=== PATIENT | male | born 1995 | race Caucasian/White ===

== ENCOUNTER 2016-07-18 16:29 | Observation (INO) ==
--- NOTE | 2016-07-18 17:10 | Emergency Department Note ---
Disposition Clinical Impression: Suicidal ideation, Acute anxiety, Depression Disposition: Admitted As Inpatient Referrals: NO,PCP [Primary Care Provider] - Forms: ED Satisfaction Letter General Adult HPI - General Chief complaint: ED Psychiatric Symptoms Stated complaint: SI Time Seen by Provider: 07/18/16 17:09 Source: patient Limitations: no limitations - History of Present Illness HPI Narrative: 20-year-old male reports emergency department with his uncle. The patient has a history of autism, ADD, depression and anxiety. He patient has been off his medications for a few months and is now feeling suicidal. He has been anxious and depressed. His uncle has kept him from harming himself. There is no history of intentional OD or acute physical concern. No chest pain shortness of breath about pain vomiting or diarrhea. No trouble walking talking hearing seeing or speaking. No urinary issues or confusion. The patient feels well physically. He describes social conflict with his mother and her boyfriend. There is concern for progressive mental distress and suicidality. Pain Scale: 3 - Related Data Home Medications Medication Instructions Recorded Confirmed No Known Home Drugs 07/18/16 07/18/16 Allergies Allergy/AdvReac Type Severity Reaction Status Date / Time No Known Allergies Allergy Verified 07/18/16 16:32 All systems ED: reviewed and negative except as stated. Past Medical History - Past Medical History Medical history: Reports: other (ADD, autism, depression, anxiety, suicide attempt in the past per history) Psychiatric history: Reports: ADHD, prior suicide attempt - Social History Smoking Status: Never smoker Alcohol use: Reports: none Drug use: Reports: none Physical Exam - General Limitations: no limitations General appearance: alert, in no apparent distress - Head Head exam: atraumatic, normocephalic, normal inspection - Eye Eye exam: Present: normal appearance - ENT ENT exam: normal exam, normal oropharynx, mucous membranes moist, TM's normal bilaterally, normal external ear exam - Neck Neck exam: Present: normal inspection, full ROM, trachea midline. Absent: tenderness - Chest Chest inspection: Present: symmetric chest wall rise. Absent: tenderness - Respiratory Respiratory exam: Present: normal lung sounds bilaterally. Absent: respiratory distress, wheezes, accessory muscle use, prolonged expiratory phase - Cardiovascular Cardiovascular exam: Present: regular rate, normal rhythm, normal heart sounds - Abdominal Exam Abdominal exam: Present: soft, Non-Tender, normal bowel sounds. Absent: tenderness, distention, guarding, rebound, rigidity - Extremities Exam Extremities exam: Present: normal inspection, full ROM, normal capillary refill. Absent: tenderness, pedal edema, joint swelling, calf tenderness - Expanded Lower Extremity Exam Neurovascular/Tendon exam: Present: normal capillary refill. Absent: motor deficit, sensory deficit, tendon deficit, extremity cold to touch, pallor - Back Exam Back exam: Present: normal inspection, full ROM. Absent: tenderness, CVA tenderness (R), CVA tenderness (L), vertebral tenderness - Neurological Exam Neurological exam: Present: alert, oriented X3, CN II-XII intact. Absent: motor sensory deficit - Psychiatric Psychiatric exam: Present: normal affect, normal mood - Skin Skin exam: Present: warm, dry, intact, normal color. Absent: rash, cyanosis, diaphoresis, erythema, pallor, mottled Course Vital Signs Temperature 98.5 F 07/18/16 16:32 Pulse Rate 71 07/18/16 16:32 Respiratory Rate 18 07/18/16 16:32 Blood Pressure 122/69 07/18/16 16:32 O2 Sat by Pulse Oximetry 99 07/18/16 16:32 Temperature 98.5 F 07/18/16 16:32 Pulse Rate 71 07/18/16 16:32 Respiratory Rate 18 07/18/16 16:32 Blood Pressure 122/69 07/18/16 16:32 O2 Sat by Pulse Oximetry 99 07/18/16 16:32 Oxygen Delivery Oxygen Delivery Room Air Medical Decision Making - [facility] Narrative Medical decision making narrative: Patient appears to be stable from a medical standpoint. Laboratory testing unremarkable. His physical examination is unremarkable. The patient has been anxious and is reportedly suicidal. We have consult to the psychiatric service for further evaluation. Psychiatric services evaluated the patient and recommended admission and a pink slip. The patient family are agreeable. - Lab Data Lab results reviewed: Yes I reviewed the patient's lab results. Result diagrams: 07/18/16 17:17 07/18/16 17:17 Lab Results 07/18/16 07/18/16 07/18/16 Range/Units 17:17 17:17 17:22 WBC 8.0 (4.3-11.1) K/mcL RBC 5.02 (4.19-5.50) M/mcL Hgb 14.9 (12.9-16.9) g/dL Hct 43.9 (37.5-50.1) % MCV 87.5 (83.0-100.0) fL MCH 29.7 (28.0-33.3) pg MCHC 33.9 (31.6-35.5) g/dL RDW 12.0 (11.5-14.5) % Plt Count 268 (140-400) K/mcL MPV 10.6 (9.4-12.4) fL Immature Gran % 0.4 (0-4) % Seg Neutrophils % 65.5 % Lymphocytes % 22.1 % Monocytes % 8.1 % Eosinophils % 3.4 % Basophils % 0.5 % Neutrophils # 5.3 (1.6-8.9) K/mcL Lymphocytes # 1.8 (0.6-4.6) K/mcL Monocytes # 0.7 (0.0-1.3) K/mcL Eosinophils # 0.3 (0.0-0.6) K/mcL Basophils # 0.0 (0.0-0.2) K/mcL Sodium 141 (136-145) mEq/L Potassium 3.9 (3.5-4.5) mEq/L Chloride 106 (98-109) mEq/L Carbon Dioxide 28 (19-29) mEq/L BUN 10 (8-26) mg/dL Creatinine 1.04 (0.72-1.25) mg/dL Est GFR ( Amer) > 60 Est GFR (Non-Af Amer) > 60 BUN/Creatinine Ratio 10 (6-26) Glucose 102 H (70-99) mg/dL Calculated Osmolality 291 (280-300) Calcium 9.7 (8.6-10.8) mg/dL Urine Color Yellow (Yellow) Urine Clarity Clear (Clear) Urine pH 7.0 (5.0-8.0) pH Units Ur Specific [place] 1.024 (1.010-1.025) Urine Protein Negative (Neg-Trace) mg/dL Urine Glucose (UA) Normal (Normal) mg/dL Urine Ketones Negative (Negative) mg/dL Urine Blood Negative (Negative) Urine Nitrite Negative (Negative) Urine Bilirubin Negative (Negative) Urine Urobilinogen Normal (Normal) mg/dL Ur Leukocyte Esterase Negative (Negative) Salicylates < 5.0 L (15-30) mg/dL Urine Opiates Screen (Zzzdlf=224) ng/mL Acetaminophen < 1.0 L (10-30) mcg/mL Ur Barbiturates Screen (Uqlmla=177) ng/mL Ur Phencyclidine Scrn (Cutoff=25) ng/mL Ur Amphetamines Screen (Blcush=2968) ng/mL U Benzodiazepines Scrn (Tnonle=047) ng/mL Urine Cocaine Screen (Cutoff= 300) ng/mL U Marijuana (THC) Screen (Cutoff = 50) ng/mL Ethyl Alcohol < 10 (0-10) mg/dL 07/18/16 Range/Units 17:22 WBC (4.3-11.1) K/mcL RBC (4.19-5.50) M/mcL Hgb (12.9-16.9) g/dL Hct (37.5-50.1) % MCV (83.0-100.0) fL MCH (28.0-33.3) pg MCHC (31.6-35.5) g/dL RDW (11.5-14.5) % Plt Count (140-400) K/mcL MPV (9.4-12.4) fL Immature Gran % (0-4) % Seg Neutrophils % % Lymphocytes % % Monocytes % % Eosinophils % % Basophils % % Neutrophils # (1.6-8.9) K/mcL Lymphocytes # (0.6-4.6) K/mcL Monocytes # (0.0-1.3) K/mcL Eosinophils # (0.0-0.6) K/mcL Basophils # (0.0-0.2) K/mcL Sodium (136-145) mEq/L Potassium (3.5-4.5) mEq/L Chloride (98-109) mEq/L Carbon Dioxide (19-29) mEq/L BUN (8-26) mg/dL Creatinine (0.72-1.25) mg/dL Est GFR ( Amer) Est GFR (Non-Af Amer) BUN/Creatinine Ratio (6-26) Glucose (70-99) mg/dL Calculated Osmolality (280-300) Calcium (8.6-10.8) mg/dL Urine Color (Yellow) Urine Clarity (Clear) Urine pH (5.0-8.0) pH Units Ur Specific [place] (1.010-1.025) Urine Protein (Neg-Trace) mg/dL Urine Glucose (UA) (Normal) mg/dL Urine Ketones (Negative) mg/dL Urine Blood (Negative) Urine Nitrite (Negative) Urine Bilirubin (Negative) Urine Urobilinogen (Normal) mg/dL Ur Leukocyte Esterase (Negative) Salicylates (15-30) mg/dL Urine Opiates Screen Negative (Cdxsuh=011) ng/mL Acetaminophen (10-30) mcg/mL Ur Barbiturates Screen Negative (Llsbca=246) ng/mL Ur Phencyclidine Scrn Negative (Cutoff=25) ng/mL Ur Amphetamines Screen Negative (Anrewb=0329) ng/mL U Benzodiazepines Scrn Negative (Fnqtij=363) ng/mL Urine Cocaine Screen Negative (Cutoff= 300) ng/mL U Marijuana (THC) Screen Negative (Cutoff = 50) ng/mL Ethyl Alcohol (0-10) mg/dL
[2016-07-18 17:30] LABS: Bilirubin,Urine Negative (Negative); Blood,Urine Negative (Negative); Clarity,Urine Clear (Clear); Color,Urine Yellow (Yellow); Glucose,Urine (UA) Normal (Normal); Ketones,Urine Negative (Negative); Leukocyte Esterase,Urine Negative (Negative); Nitrite,Urine Negative (Negative); Protein,Urine Negative (Neg-Trace); Specific Gravity,Urine 1.024 (1.010-1.025); Urobilinogen,Urine Normal (Normal)
[2016-07-18 17:31] LABS: Basophils % 0.5 %; Eosinophils # 0.3 K/mcL (0.0-0.6); Eosinophils % 3.4 %; Hematocrit 43.9 % (37.5-50.1); Hemoglobin 14.9 g/dL (12.9-16.9); Immature Granulocytes % 0.4 % (0-4); Lymphocytes # 1.8 K/mcL (0.6-4.6); Lymphocytes % 22.1 %; Mean Corpuscular HGB Conc 33.9 g/dL (31.6-35.5); Mean Corpuscular Hemoglobin 29.7 pg (28.0-33.3); Mean Corpuscular Volume 87.5 fL (83.0-100.0); Mean Platelet Volume 10.6 fL (9.4-12.4); Monocytes # 0.7 K/mcL (0.0-1.3); Monocytes % 8.1 %; Neutrophils # 5.3 K/mcL (1.6-8.9); Platelet Count 268 K/mcL (140-400); Red Blood Count 5.02 M/mcL (4.19-5.50); Segmented Neutrophils % 65.5 %
[2016-07-18 17:35] LABS: Amphetamine Screen,Urine Negative ng/mL (Cutoff=1000); Barbiturate Screen,Urine Negative ng/mL (Cutoff=200); Benzodiazepines Screen,Urine Negative ng/mL (Cutoff=200); Cannabinoid Screen,Urine Negative ng/mL (Cutoff = 50); Cocaine Screen,Urine Negative ng/mL (Cutoff= 300); Opiate Screen,Urine Negative ng/mL (Cutoff=300); Phencyclidine Screen,Urine Negative ng/mL (Cutoff=25)
[2016-07-18 17:45] LABS: BUN/Creatinine Ratio 10 (6-26); Blood Urea Nitrogen 10 mg/dL (8-26); Calcium 9.7 mg/dL (8.6-10.8); Carbon Dioxide 28 mEq/L (19-29); Chloride 106 mEq/L (98-109); Glucose 102 mg/dL (70-99); Osmolality,Calculated 291 (280-300); Potassium 3.9 mEq/L (3.5-4.5); Sodium 141 mEq/L (136-145); eGFR For African Americans > 60; eGFR For Non-African Americans > 60
[2016-07-18 17:46] LABS: Acetaminophen < 1.0 mcg/mL (10-30); Ethanol < 10 mg/dL (0-10); Salicylate < 5.0 mg/dL (15-30)
[2016-07-18] MEDS ORDERED: Mag Hydrox/Al Hydrox/Simeth 30 ML UDC PO PRN (20:49)
[2016-07-18] MEDS ORDERED: hydrOXYzine pamoate 25 MG CAPSULE PO PRN (20:49)
[2016-07-18] MEDS ORDERED: *HR* LORazepam 1 MG TABLET PO PRN (20:49)
[2016-07-18] MEDS ORDERED: Haloperidol Lactate 5 MG/ML VIAL IM PRN (20:49)
[2016-07-18] MEDS ORDERED: Ibuprofen 400 MG TABLET PO PRN (20:49)
[2016-07-18] MEDS ORDERED: MOM Conc 10 ML UD.LIQ PO PRN (20:49)
[2016-07-18] MEDS ORDERED: *HR* LORazepam 2 MG/ML VIAL IM PRN (20:49)
[2016-07-18] MEDS: traZODone 50 MG TABLET PO PRN (23:51)
--- NOTE | 2016-07-19 15:13 | Discharge Summary ---
Date of Encounter: 07/20/16 Time of Encounter: 12:00 History of Present Illness Chief complaint: Suicidal ideation Admitted From: Emergency Dept History of Present Illness: Mr. Maddox is a 20 year old male admitted from the emergency department for suicidal ideation. Patient was having stress related to family and his relationship with his stepfather. Patient had a history of ADHD and autism. He has no recent psychiatric treatment history or medication. No previous history of suicide attempts or hospitalization. Patient reported he is homeless and was told by family that she needed to be placed in a group. Patient was pleasant and cooperative and did not endorse any symptoms of depression or anxiety except his interaction with his stepfather and argument with him. Past Med Surg Social Fam HX - Past Medical History Medical history: asthma, other - Past Psychiatric History Psychiatric history: Reports: no psych history - Social History Smoking Status: Never smoker Smokeless Tobacco Status: No Alcohol use: none Drug use: none Medications - Discharge Medications No Known Home Drugs 07/18/16 [History] Allergies No Known Allergies Allergy (Verified 07/18/16 16:32) Review of Systems Psychiatric: Reports: suicidal ideation Mental Status Exam - Mental Status Exam Patient orientation: Yes Person, Yes Time, Yes Place Level of alertness: Alert Patient appearance: Obese Behavior: calm, cooperative, anxious, impulsive Psychomotor activity: Increased Eye contact: Fleeting Contact Mood description: Euthymic/stable Affect description: congruent with mood, full range, euphoric Speech pattern: Normal rate, Normal rhythm, Normal tone, Excessive Speech Volume: Normal Thought process: Linear, Goal Oriented Thought Content: No Suicidal ideation, No Homicidal ideation, No Overt delusions Perceptual Disturbances: No Auditory hallucinations, No Visual hallucinations Judgment: Limited Insight: Partial Results - Vital Signs Vital signs: Temp Pulse Resp BP Pulse Ox 98 F 57 16 116/69 99 07/19/16 09:00 07/19/16 09:00 07/19/16 09:00 07/19/16 09:00 07/18/16 16:32 - Labs Labs: Laboratory Last Values WBC 8.0 K/mcL (4.3-11.1) 07/18/16 17:17 RBC 5.02 M/mcL (4.19-5.50) 07/18/16 17:17 Hgb 14.9 g/dL (12.9-16.9) 07/18/16 17:17 Hct 43.9 % (37.5-50.1) 07/18/16 17:17 MCV 87.5 fL (83.0-100.0) 07/18/16 17:17 MCH 29.7 pg (28.0-33.3) 07/18/16 17:17 MCHC 33.9 g/dL (31.6-35.5) 07/18/16 17:17 RDW 12.0 % (11.5-14.5) 07/18/16 17:17 Plt Count 268 K/mcL (140-400) 07/18/16 17:17 MPV 10.6 fL (9.4-12.4) 07/18/16 17:17 Immature Gran % 0.4 % (0-4) 07/18/16 17:17 Seg Neutrophils % 65.5 % 07/18/16 17:17 Lymphocytes % 22.1 % 07/18/16 17:17 Monocytes % 8.1 % 07/18/16 17:17 Eosinophils % 3.4 % 07/18/16 17:17 Basophils % 0.5 % 07/18/16 17:17 Neutrophils # 5.3 K/mcL (1.6-8.9) 07/18/16 17:17 Lymphocytes # 1.8 K/mcL (0.6-4.6) 07/18/16 17:17 Monocytes # 0.7 K/mcL (0.0-1.3) 07/18/16 17:17 Eosinophils # 0.3 K/mcL (0.0-0.6) 07/18/16 17:17 Basophils # 0.0 K/mcL (0.0-0.2) 07/18/16 17:17 Sodium 141 mEq/L (136-145) 07/18/16 17:17 Potassium 3.9 mEq/L (3.5-4.5) 07/18/16 17:17 Chloride 106 mEq/L (98-109) 07/18/16 17:17 Carbon Dioxide 28 mEq/L (19-29) 07/18/16 17:17 BUN 10 mg/dL (8-26) 07/18/16 17:17 Creatinine 1.04 mg/dL (0.72-1.25) 07/18/16 17:17 Est GFR ( Amer) > 60 07/18/16 17:17 Est GFR (Non-Af Amer) > 60 07/18/16 17:17 BUN/Creatinine Ratio 10 (6-26) 07/18/16 17:17 Glucose 102 mg/dL (70-99) H 07/18/16 17:17 Calculated Osmolality 291 (280-300) 07/18/16 17:17 Calcium 9.7 mg/dL (8.6-10.8) 07/18/16 17:17 Urine Color Yellow (Yellow) 07/18/16 17:22 Urine Clarity Clear (Clear) 07/18/16 17:22 Urine pH 7.0 pH Units (5.0-8.0) 07/18/16 17:22 Ur Specific [place] 1.024 (1.010-1.025) 07/18/16 17:22 Urine Protein Negative mg/dL (Neg-Trace) 07/18/16 17:22 Urine Glucose (UA) Normal mg/dL (Normal) 07/18/16 17:22 Urine Ketones Negative mg/dL (Negative) 07/18/16 17:22 Urine Blood Negative (Negative) 07/18/16 17:22 Urine Nitrite Negative (Negative) 07/18/16 17:22 Urine Bilirubin Negative (Negative) 07/18/16 17:22 Urine Urobilinogen Normal mg/dL (Normal) 07/18/16 17:22 Ur Leukocyte Esterase Negative (Negative) 07/18/16 17:22 Salicylates < 5.0 mg/dL (15-30) L 07/18/16 17:17 Urine Opiates Screen Negative ng/mL (Ewhhiz=428) 07/18/16 17:22 Acetaminophen < 1.0 mcg/mL (10-30) L 07/18/16 17:17 Ur Barbiturates Screen Negative ng/mL (Yqzuvy=529) 07/18/16 17:22 Ur Phencyclidine Scrn Negative ng/mL (Cutoff=25) 07/18/16 17:22 Ur Amphetamines Screen Negative ng/mL (Fbkoaq=1595) 07/18/16 17:22 U Benzodiazepines Scrn Negative ng/mL (Rkvdrn=166) 07/18/16 17:22 Urine Cocaine Screen Negative ng/mL (Cutoff= 300) 07/18/16 17:22 U Marijuana (THC) Screen Negative ng/mL (Cutoff = 50) 07/18/16 17:22 Ethyl Alcohol < 10 mg/dL (0-10) 07/18/16 17:17 Diagnosis - Discharge Diagnosis (1) Suicidal ideation Status: Acute Assessment and Plan - Patient/Caregiver Discharge Instructions Activity: resume usual activities as tolerated Diet: regular diet - Follow up Plan Follow up with: Jenny Brenda Hsieh [facility] [place] - 07/25/16 8:45 am (The above appointment is too establish you as a client. When you come to your first appointment, you will have an orientation to the agency and you will meet with a counselor. Please bring the following with you to your first visit to the clinic: 1) proof of household income (two consecutive pay stubs, social security award letter, bank statement, statement letter from [facility], child support statement, IRS 1040 or W2 form, or a statement from the person who financially supports you stating they help provide for your basic needs), 2) proof of residency (drivers license, a piece of mail showing your address, a statement from person you live with verifying you live at their address), 3) your social security card, 4) photo ID, 5) your insurance card (if you have commercial insurance you must call to obtain a prior authorization number before you arrive to your first appointment) and 6) if you do not have insurance but have applied for Medicaid, please bring verification you have applied. This is the first available appointment. You may contact the office regularly to check for cancellations that may allow you to be seen sooner. ) [facility] [Outside] - 07/31/16 9:00 am (The above appointment is with Phyllis Clark to establish with a primary care provider. You are also scheduled to see psychiatric prescriber, Marni Rea, on 10/10 at 9:30am. Please arrive 15 minutes early to your first appointment to complete paperwork. Please bring your insurance card, photo ID and medications in their original bottles. If you do not have insurance, bring proof of income to apply for the sliding fee scale. If you are unable to keep this appointment , 24 hour business notice of cancellation is expected. This is the first available appointment. You may contact the office regularly to check for cancellations that may allow you to be seen sooner. ) Functional capacity at discharge: independent ambulation Overall status at discharge: Stable Disposition: Home, Self-Care Provider Date of admission: 07/18/16 19:28 Primary care physician: PCP NO Consults: 07/18/16 23:05 Consult to Pastoral Services [CONS] Routine Comment: Discharging clinician: Jamie Patel Hospital Course Hospital course: Mr. Maddox is a 20 year old male admitted for evaluation of suicidal ideation after having a family conflicts with his stepfather. On the unit the patient was cooperative medically stable pleasant. He denied any problem with sleep or appetite and he did not endorse any symptoms depression and anxiety and he did not meet criteria for continued inpatient psychiatric hospitalization. psychiatric social worker provided discharge plans and referral to resources in the community that patient can use. On discharge patient was medically stable, denies suicidal ideation and future oriented. - Time Spent with Patient Total time spent providing and/or coordinating discharge services: Less than 30 minutes Procedures - Procedures Procedures: Medication Management, Crisis Stabilization, Supportive Therapy, Group Therapy, Psychoeducational Therapy Quality - Multiple Antipsychotics Patient discharged on 2 or more antipsychotic medications: No
[2016-07-19] MEDS: traZODone 50 MG TABLET PO PRN (21:48)
[2016-07-20 09:39] VITALS: BP 123/58
== END 2016-07-20 15:15 | disposition home or self-care (01) ==
LOC: EMEROO 16:29 → 1ANU 19:28 → INTOOBSV 19:28 → 1ANU 20:12
PROVIDERS: ADMIT Psychiatry & Neurology Psychiatry; ATTEND Psychiatry & Neurology Psychiatry

== ENCOUNTER 2017-01-04 02:13 | Observation (INO) ==
[2017-01-04 03:11] LABS: Bilirubin,Urine Negative (Negative); Blood,Urine Negative (Negative); Clarity,Urine Clear (Clear); Color,Urine Yellow (Yellow); Glucose,Urine (UA) Normal (Normal); Ketones,Urine Negative (Negative); Leukocyte Esterase,Urine Negative (Negative); Nitrite,Urine Negative (Negative); PH,Urine 6.5 pH Units (5.0-8.0); Protein,Urine Negative (Neg-Trace); Specific Gravity,Urine 1.024 (1.010-1.025); Urobilinogen,Urine Normal (Normal)
--- NOTE | 2017-01-04 03:12 | Emergency Department Note ---
Disposition Clinical Impression: Auditory hallucinations, Acute anxiety Disposition: Admitted As Inpatient Condition: Good General Adult HPI - General Chief complaint: ED Psychiatric Symptoms Stated complaint: "mental breakdown" Time Seen by Provider: 01/04/17 02:26 Source: patient, EMS Limitations: no limitations Nursing Notes Reviewed: Yes Vital Signs Reviewed: Yes - History of Present Illness HPI Narrative: 21-year-old male who reports he has had hallucinations and "mental breakdown" today. He says he has had a history of suicidal ideation but has never actually attempted. He is not currently suicidal. He states that he hears voices that are telling him to do things. He states that he is having increased stress in his life as we approach the dates of the anniversary of a family member's . He denies any other symptoms. He is not having any abdominal pain or fever. He denies trying to overdose on any medications or attempting on his life. He is requesting to be admitted to [facility] because he "cannot handle it ". He does have a history of Asperger syndrome. Pain Scale: 0 Improves with: nothing Worsens with: nothing Associated symptoms: Reports: denies other symptoms Treatments Prior to Arrival: none - Related Data Home Medications Medication Instructions Recorded Confirmed Intuniv 4 mg PO DAILY 09/05/16 09/05/16 Lisdexamfetamine Dimesylate 70 mg PO DAILY 09/05/16 09/05/16 [Vyvanse] Quetiapine Fumarate [Seroquel Xr] 200 mg PO DAILY 09/05/16 09/05/16 Sertraline [Zoloft] 50 mg PO DAILY 09/05/16 09/05/16 Previous Rx's Medication Instructions Recorded Sertraline [Zoloft] 100 mg PO DAILY #7 tablet 09/12/16 Sertraline [Zoloft] 50 mg PO DAILY #30 tablet 10/01/16 Azithromycin [Azithromycin 6-Tab 250 mg PO PER PKG DI #6 tab 10/19/16 Pack] Naproxen [Naprosyn] 500 mg PO BID PRN #20 tablet 12/10/16 Allergies Allergy/AdvReac Type Severity Reaction Status Date / Time No Known Allergies Allergy Verified 12/10/16 01:11 All systems ED: reviewed and negative except as stated. Constitutional: Denies: fever ENT ED: Denies: throat pain Cardiovascular: Denies: chest pain Respiratory: Denies: cough Gastrointestinal: Denies: abdominal pain Musculoskeletal: Denies: back pain Integumentary: Denies: rash Neurological: Denies: headache Psychiatric: Reports: anxiety, auditory hallucinations Past Medical History - Past Medical History Medical history: Reports: asthma, other Psychiatric history: Reports: anxiety, ADHD, depression - Social History Smoking Status: Current every day smoker Smokeless Tobacco Status: No Alcohol use: Reports: none Drug use: Reports: marijuana Physical Exam - General Limitations: no limitations General appearance: alert - Head Head exam: atraumatic - Eye Eye exam: Present: normal appearance, PERRL - ENT ENT exam: normal exam - Neck Neck exam: Present: normal inspection - Chest Chest inspection: Present: normal inspection - Respiratory Respiratory exam: Present: normal lung sounds bilaterally. Absent: respiratory distress - Cardiovascular Cardiovascular exam: Present: regular rate, normal rhythm - Abdominal Exam Abdominal exam: Present: soft, Non-Tender - Extremities Exam Extremities exam: Present: normal inspection - Neurological Exam Neurological exam: Present: alert, oriented X3. Absent: motor sensory deficit - Skin Skin exam: Present: warm, dry Course Course Narrative: He is having auditory hallucinations. 1A has evaluated the patient and recommended admission. Vital Signs Temperature 98.0 F 01/04/17 02:14 Pulse Rate 73 01/04/17 02:14 Respiratory Rate 20 01/04/17 02:14 Blood Pressure 147/85 01/04/17 02:14 O2 Sat by Pulse Oximetry 100 01/04/17 02:14 Temperature 98.1 F 01/04/17 05:33 Pulse Rate 76 01/04/17 04:53 Respiratory Rate 18 01/04/17 05:33 Blood Pressure 144/82 01/04/17 05:33 O2 Sat by Pulse Oximetry 99 01/04/17 04:53 Oxygen Delivery Oxygen Delivery Room Air Medical Decision Making - Medical Records Medical records reviewed: Yes I reviewed the patient's medical records. - Lab Data Lab results reviewed: Yes I reviewed the patient's lab results. Result diagrams: 01/04/17 03:32 01/04/17 03:32 Lab Results 01/04/17 01/04/17 01/04/17 Range/Units 03:00 03:03 03:32 WBC 10.4 (4.3-11.1) K/mcL RBC 4.74 (4.19-5.50) M/mcL Hgb 14.2 (12.9-16.9) g/dL Hct 42.1 (37.5-50.1) % MCV 88.8 (83.0-100.0) fL MCH 30.0 (28.0-33.3) pg MCHC 33.7 (31.6-35.5) g/dL RDW 12.4 (11.5-14.5) % Plt Count 266 (140-400) K/mcL MPV 10.6 (9.4-12.4) fL Immature Gran % 0.7 (0-4) % Seg Neutrophils % 60.9 % Lymphocytes % 23.9 % Monocytes % 10.2 % Eosinophils % 3.9 % Basophils % 0.4 % Neutrophils # 6.4 (1.6-8.9) K/mcL Lymphocytes # 2.5 (0.6-4.6) K/mcL Monocytes # 1.1 (0.0-1.3) K/mcL Eosinophils # 0.4 (0.0-0.6) K/mcL Basophils # 0.0 (0.0-0.2) K/mcL Immature Plt Fraction 4.4 (1.1-6.1) % Sodium (136-145) mEq/L Potassium (3.5-4.5) mEq/L Chloride (98-109) mEq/L Carbon Dioxide (19-29) mEq/L BUN (8-26) mg/dL Creatinine (0.72-1.25) mg/dL Est GFR ( Amer) (> 60) Est GFR (Non-Af Amer) (> 60) BUN/Creatinine Ratio (6-26) Glucose (70-99) mg/dL Calculated Osmolality (280-300) Calcium (8.6-10.8) mg/dL Urine Color Yellow (Yellow) Urine Clarity Clear (Clear) Urine pH 6.5 (5.0-8.0) pH Units Ur Specific [place] 1.024 (1.010-1.025) Urine Protein Negative (Neg-Trace) mg/dL Urine Glucose (UA) Normal (Normal) mg/dL Urine Ketones Negative (Negative) mg/dL Urine Blood Negative (Negative) Urine Nitrite Negative (Negative) Urine Bilirubin Negative (Negative) Urine Urobilinogen Normal (Normal) mg/dL Ur Leukocyte Esterase Negative (Negative) Salicylates (15-30) mg/dL Urine Opiates Screen Negative (Abrgrs=163) ng/mL Acetaminophen (10-30) mcg/mL Ur Barbiturates Screen Negative (Udpcwl=024) ng/mL Ur Phencyclidine Scrn Negative (Cutoff=25) ng/mL Ur Amphetamines Screen Negative (Rofngk=6743) ng/mL U Benzodiazepines Scrn Negative (Kuiacw=675) ng/mL Urine Cocaine Screen Negative (Cutoff= 300) ng/mL U Marijuana (THC) Screen Negative (Cutoff = 50) ng/mL Ethyl Alcohol (0-10) mg/dL 01/04/17 Range/Units 03:32 WBC (4.3-11.1) K/mcL RBC (4.19-5.50) M/mcL Hgb (12.9-16.9) g/dL Hct (37.5-50.1) % MCV (83.0-100.0) fL MCH (28.0-33.3) pg MCHC (31.6-35.5) g/dL RDW (11.5-14.5) % Plt Count (140-400) K/mcL MPV (9.4-12.4) fL Immature Gran % (0-4) % Seg Neutrophils % % Lymphocytes % % Monocytes % % Eosinophils % % Basophils % % Neutrophils # (1.6-8.9) K/mcL Lymphocytes # (0.6-4.6) K/mcL Monocytes # (0.0-1.3) K/mcL Eosinophils # (0.0-0.6) K/mcL Basophils # (0.0-0.2) K/mcL Immature Plt Fraction (1.1-6.1) % Sodium 143 (136-145) mEq/L Potassium 3.8 (3.5-4.5) mEq/L Chloride 109 (98-109) mEq/L Carbon Dioxide 24 (19-29) mEq/L BUN 10 (8-26) mg/dL Creatinine 0.85 (0.72-1.25) mg/dL Est GFR ( Amer) > 60 (> 60) Est GFR (Non-Af Amer) > 60 (> 60) BUN/Creatinine Ratio 12 (6-26) Glucose 113 H (70-99) mg/dL Calculated Osmolality 296 (280-300) Calcium 9.1 (8.6-10.8) mg/dL Urine Color (Yellow) Urine Clarity (Clear) Urine pH (5.0-8.0) pH Units Ur Specific [place] (1.010-1.025) Urine Protein (Neg-Trace) mg/dL Urine Glucose (UA) (Normal) mg/dL Urine Ketones (Negative) mg/dL Urine Blood (Negative) Urine Nitrite (Negative) Urine Bilirubin (Negative) Urine Urobilinogen (Normal) mg/dL Ur Leukocyte Esterase (Negative) Salicylates < 5.0 L (15-30) mg/dL Urine Opiates Screen (Ykmtoi=387) ng/mL Acetaminophen < 1.0 L (10-30) mcg/mL Ur Barbiturates Screen (Pztztj=634) ng/mL Ur Phencyclidine Scrn (Cutoff=25) ng/mL Ur Amphetamines Screen (Bjkdqr=6122) ng/mL U Benzodiazepines Scrn (Zqxyps=990) ng/mL Urine Cocaine Screen (Cutoff= 300) ng/mL U Marijuana (THC) Screen (Cutoff = 50) ng/mL Ethyl Alcohol < 10 (0-10) mg/dL Attestation Statement - Attestation Attestation: I, Nishant Richards MD, personally evaluated this patient and discussed their management with the resident physician. I reviewed the resident's note and agree with the documented findings, medical decision making, and plan of care. 21-year-old male presents to the emergency department complaining of anxiety and insomnia and auditory hallucinations. He states that he has been hearing demonic voices. No visual hallucinations. He denies any suicidal or homicidal ideation. On examination patient is a well-developed well-nourished well-appearing young male in no acute distress. He is alert and oriented 3. There is no cyanosis or diaphoresis. Breath sounds are clear and equal bilaterally. Heart regular rate and rhythm. Abdomen is soft and nontender with normal bowel sounds. No gross focal neurological deficits. Labs reviewed. [facility] psychiatry service consulted and evaluated patient in the emergency department and patient is being admitted to the psychiatry service.
[2017-01-04 03:19] LABS: Amphetamine Screen,Urine Negative ng/mL (Cutoff=1000); Barbiturate Screen,Urine Negative ng/mL (Cutoff=200); Benzodiazepines Screen,Urine Negative ng/mL (Cutoff=200); Cannabinoid Screen,Urine Negative ng/mL (Cutoff = 50); Cocaine Screen,Urine Negative ng/mL (Cutoff= 300); Opiate Screen,Urine Negative ng/mL (Cutoff=300); Phencyclidine Screen,Urine Negative ng/mL (Cutoff=25)
[2017-01-04 03:47] LABS: Basophils % 0.4 %; Eosinophils # 0.4 K/mcL (0.0-0.6); Eosinophils % 3.9 %; Hematocrit 42.1 % (37.5-50.1); Hemoglobin 14.2 g/dL (12.9-16.9); Immature Granulocytes % 0.7 % (0-4); Immature Platelets 4.4 % (1.1-6.1); Lymphocytes # 2.5 K/mcL (0.6-4.6); Lymphocytes % 23.9 %; Mean Corpuscular HGB Conc 33.7 g/dL (31.6-35.5); Mean Corpuscular Volume 88.8 fL (83.0-100.0); Mean Platelet Volume 10.6 fL (9.4-12.4); Monocytes # 1.1 K/mcL (0.0-1.3); Monocytes % 10.2 %; Neutrophils # 6.4 K/mcL (1.6-8.9); Platelet Count 266 K/mcL (140-400); Red Blood Count 4.74 M/mcL (4.19-5.50); Red Cell Distribution Width 12.4 % (11.5-14.5); Segmented Neutrophils % 60.9 %
[2017-01-04 04:02] LABS: BUN/Creatinine Ratio 12 (6-26); Blood Urea Nitrogen 10 mg/dL (8-26); Calcium 9.1 mg/dL (8.6-10.8); Carbon Dioxide 24 mEq/L (19-29); Chloride 109 mEq/L (98-109); Glucose 113 mg/dL (70-99); Osmolality,Calculated 296 (280-300); Potassium 3.8 mEq/L (3.5-4.5); Sodium 143 mEq/L (136-145); eGFR For African Americans > 60 (> 60); eGFR For Non-African Americans > 60 (> 60)
[2017-01-04 04:06] LABS: Acetaminophen < 1.0 mcg/mL (10-30); Ethanol < 10 mg/dL (0-10); Salicylate < 5.0 mg/dL (15-30)
[2017-01-04] MEDS ORDERED: MOM Conc 10 ML UD.LIQ PO PRN (05:27)
[2017-01-04] MEDS ORDERED: *HR* LORazepam 2 MG/ML VIAL IM PRN (05:27)
[2017-01-04] MEDS ORDERED: Mag Hydrox/Al Hydrox/Simeth 30 ML UDC PO PRN (05:27)
[2017-01-04] MEDS ORDERED: hydrOXYzine pamoate 25 MG CAPSULE PO PRN (05:27)
[2017-01-04] MEDS ORDERED: Haloperidol Lactate 5 MG/ML VIAL IM PRN (05:27)
[2017-01-04] MEDS ORDERED: *HR* LORazepam 1 MG TABLET PO PRN (05:27)
[2017-01-04] MEDS ORDERED: traZODone 50 MG TABLET PO PRN (05:27)
--- NOTE | 2017-01-04 15:15 | Psychiatry History & Physical ---
Date of Encounter: 01/04/17 Time of Encounter: 15:09 History of Present Illness Patient Stated Chief Complaint: AH Medicare Admission Attestation: For traditional Medicare patients the provided hospital inpatient services are reasonable and necessary and in the case of services not specified as inpatient -only under 42 CFR 419.22 (n), that they are appropriately provided as inpatient services in accordance 42 CFR 412.3. For Critical Access Hospital the patient may reasonably be expected to be discharged or transferred to a hospital within 96 hours after admission to the Critical Access Hospital. Admitted From: Home Plans for Post Hospital Care: Home History of Present Illness: Mr. Madodx is a 21 year old male who was admitted secondary to hearing AH and feeling very frightened. According to staff he is a frequent customer in the [place] [facility]. Typically he presents with SI but client denies having any SI for six months now. Client reports AH are new and distressing. Does not appear psychotic. No responding to IS. Appears to have cognitive limitations. Likely DD but not linked with services. Rather child-like. Client reported the last time he was here he was placed on Zoloft and this medication helped him. Discussed how Zoloft can help with mood and anxiety but that it was not typically used for AH. Client requested to start with Zoloft alone and this health underwriter agrees since he benefitted from it before and it is doubtful he is experiencing genuine psychosis. Lives with friends and states he can return there once discharged. No substances of abuse. Denies physical health problems. Will need linked with services as his community compliance is poor and he no longer has an open case anywhere. Past Med Surg Social Fam HX - Past Medical History Medical history: asthma, other - Past Psychiatric History Psychiatric history: Reports: previous psychiatric hospitalization Family psychiatric history: Unknown Family History of Suicide: Unknown - Social History Smoking Status: Former smoker Smokeless Tobacco Status: No Alcohol use: none Drug use: none - Family History Mother Grandmother History Unknown: Yes Adopted: Yes Name: Karyn Burns Age: 61 Family Member Ethnicity: Non- Living Status: Still Living Hx Family Cardiac Disorders: Yes (TIA) Hx Family Respiratory Disorders: No Hx Family Cancer: Yes (Leukemia) Hx Family GI Disorders: No Hx Family Genitourinary Disorders: No Hx Family Endocrine Disorder: Yes (Diabetic) Hx Family Musculoskeletal Disorders: No Hx Family Neuromuscular Disorders: No Hx Family Neurologic Disorders: No Hx Family HEENT Disorders: No Hx Family Autoimmune Disorders: No Hx Family Reproductive Disorders: No Hx Family Psychosocial Disorders: No Hx Family Medical Disorders: No Medications & Allergies No Known Home Drugs 01/04/17 [History] 3 Allergy/AdvReac Type Severity Reaction Status Date / Time No Known Allergies Allergy Verified 12/10/16 01:11 Review of Systems Constitutional: Denies: fever, chills, weakness, weight change Eyes: Denies: eye pain, vision change Ears, Nose, Throat: Denies: ear pain, throat pain, dental pain, hearing loss, congestion Cardiovascular: Denies: chest pain, palpitations, dyspnea on exertion Respiratory: Denies: cough, dyspnea, wheezes Gastrointestinal: Denies: abdominal pain, nausea, vomiting, diarrhea, constipation Genitourinary male: Denies: urgency, dysuria, frequency, genital lesions Genitourinary female: Denies: urgency, dysuria, frequency, abnormal menses, dyspareunia Musculoskeletal: Denies: joint swelling, joint pain Integumentary: Denies: rash, lesions, pruritus Neurological: Denies: headache, weakness, numbness, memory loss Endocrine: Denies: fatigue, heat or cold intolerance Hematologic/Lymphatic: Denies: easy bruising, lymphadenopathy Allergic/Immunologic: Denies: urticaria, itchy eyes Mental Status Exam Patient orientation: Yes Person, Yes Time, Yes Place Level of alertness: Alert Patient appearance: Appropriate Behavior: calm, cooperative Psychomotor activity: Normal Eye contact: Maintains Eye Contact Mood description: Anxious Affect description: congruent with mood Speech pattern: Normal rate, Normal rhythm, Normal tone Speech volume: Loud Thought process: Goal Oriented Thought content: No Suicidal ideation, No Homicidal ideation, No Overt delusions Perceptual disturbances: Yes Auditory hallucinations Attention span: Capable of Focused Attention Memory description: Grossly Intact Patient reliability: Questionable Historian Intelligence estimate: Below Average Judgment: Limited Insight: Partial Exam - HEENT Head exam IM: Present: atraumatic Eye exam IM: Present: EOMI - Neurological Neurological exam IM: Present: alert - Respiratory Respiratory exam IM: Present: CTAB - GI/Abdominal GI/Abdominal exam IM: Present: normal bowel sounds - Extremities Extremities exam IM: Present: full ROM - Skin Skin exam IM: Present: normal color Results - Vital Signs Vital signs: Temp Pulse Resp BP Pulse Ox 97.6 F 55 18 126/68 99 01/04/17 09:00 01/04/17 09:00 01/04/17 09:00 01/04/17 09:00 01/04/17 04:53 - Labs Labs: Laboratory Last Values WBC 10.4 K/mcL (4.3-11.1) 01/04/17 03:32 RBC 4.74 M/mcL (4.19-5.50) 01/04/17 03:32 Hgb 14.2 g/dL (12.9-16.9) 01/04/17 03:32 Hct 42.1 % (37.5-50.1) 01/04/17 03:32 MCV 88.8 fL (83.0-100.0) 01/04/17 03:32 MCH 30.0 pg (28.0-33.3) 01/04/17 03:32 MCHC 33.7 g/dL (31.6-35.5) 01/04/17 03:32 RDW 12.4 % (11.5-14.5) 01/04/17 03:32 Plt Count 266 K/mcL (140-400) 01/04/17 03:32 MPV 10.6 fL (9.4-12.4) 01/04/17 03:32 Immature Gran % 0.7 % (0-4) 01/04/17 03:32 Seg Neutrophils % 60.9 % 01/04/17 03:32 Lymphocytes % 23.9 % 01/04/17 03:32 Monocytes % 10.2 % 01/04/17 03:32 Eosinophils % 3.9 % 01/04/17 03:32 Basophils % 0.4 % 01/04/17 03:32 Neutrophils # 6.4 K/mcL (1.6-8.9) 01/04/17 03:32 Lymphocytes # 2.5 K/mcL (0.6-4.6) 01/04/17 03:32 Monocytes # 1.1 K/mcL (0.0-1.3) 01/04/17 03:32 Eosinophils # 0.4 K/mcL (0.0-0.6) 01/04/17 03:32 Basophils # 0.0 K/mcL (0.0-0.2) 01/04/17 03:32 Immature Plt Fraction 4.4 % (1.1-6.1) 01/04/17 03:32 Sodium 143 mEq/L (136-145) 01/04/17 03:32 Potassium 3.8 mEq/L (3.5-4.5) 01/04/17 03:32 Chloride 109 mEq/L (98-109) 01/04/17 03:32 Carbon Dioxide 24 mEq/L (19-29) 01/04/17 03:32 BUN 10 mg/dL (8-26) 01/04/17 03:32 Creatinine 0.85 mg/dL (0.72-1.25) 01/04/17 03:32 Est GFR ( Amer) > 60 (> 60) 01/04/17 03:32 Est GFR (Non-Af Amer) > 60 (> 60) 01/04/17 03:32 BUN/Creatinine Ratio 12 (6-26) 01/04/17 03:32 Glucose 113 mg/dL (70-99) H 01/04/17 03:32 Calculated Osmolality 296 (280-300) 01/04/17 03:32 Calcium 9.1 mg/dL (8.6-10.8) 01/04/17 03:32 Urine Color Yellow (Yellow) 01/04/17 03:03 Urine Clarity Clear (Clear) 01/04/17 03:03 Urine pH 6.5 pH Units (5.0-8.0) 01/04/17 03:03 Ur Specific [place] 1.024 (1.010-1.025) 01/04/17 03:03 Urine Protein Negative mg/dL (Neg-Trace) 01/04/17 03:03 Urine Glucose (UA) Normal mg/dL (Normal) 01/04/17 03:03 Urine Ketones Negative mg/dL (Negative) 01/04/17 03:03 Urine Blood Negative (Negative) 01/04/17 03:03 Urine Nitrite Negative (Negative) 01/04/17 03:03 Urine Bilirubin Negative (Negative) 01/04/17 03:03 Urine Urobilinogen Normal mg/dL (Normal) 01/04/17 03:03 Ur Leukocyte Esterase Negative (Negative) 01/04/17 03:03 Salicylates < 5.0 mg/dL (15-30) L 01/04/17 03:32 Urine Opiates Screen Negative ng/mL (Krkugm=179) 01/04/17 03:00 Acetaminophen < 1.0 mcg/mL (10-30) L 01/04/17 03:32 Ur Barbiturates Screen Negative ng/mL (Wqsepf=295) 01/04/17 03:00 Ur Phencyclidine Scrn Negative ng/mL (Cutoff=25) 01/04/17 03:00 Ur Amphetamines Screen Negative ng/mL (Hazsxo=0205) 01/04/17 03:00 U Benzodiazepines Scrn Negative ng/mL (Kkoctm=102) 01/04/17 03:00 Urine Cocaine Screen Negative ng/mL (Cutoff= 300) 01/04/17 03:00 U Marijuana (THC) Screen Negative ng/mL (Cutoff = 50) 01/04/17 03:00 Ethyl Alcohol < 10 mg/dL (0-10) 01/04/17 03:32 Assessment and Plan (1) Acute anxiety Current visit: Yes Status: Acute Plan: Admit inpatient for safety and stabilization, Close observation, Suicide Precautions per unit protocol, Encourage participation in unit milieu, Group Therapy, Monitor sleep, Monitor appetite Risks, benefits, side effects, alternatives discussed w/pt: Yes Patient agreeable to treatment: Yes Plans for Post Hospital Care: Home Estimated Length of Stay (Days): 3
[2017-01-04] MEDS: Acetaminophen 325 MG TABLET PO PRN ×2 (15:41→20:28)
[2017-01-05 09:29] VITALS: BP 128/68
--- NOTE | 2017-01-05 10:18 | Discharge Summary ---
Date of Encounter: 01/05/17 Time of Encounter: 10:13 Diagnosis - Discharge Diagnosis (1) Acute anxiety Status: Acute Medications - Discharge Medications Prescriptions: hydrOXYzine pamoate [HydrOXYzine Pamoate] 25 mg PO TID PRN #70 capsule PRN Reason: Anxiety Sertraline [Zoloft] 50 mg PO HS #35 tablet Sertraline [Zoloft] 50 mg PO HS #35 tablet 01/05/17 [Rx] hydrOXYzine pamoate [HydrOXYzine Pamoate] 25 mg PO TID PRN #70 capsule 01/05/17 [Rx] 3 Allergy/AdvReac Type Severity Reaction Status Date / Time No Known Allergies Allergy Verified 12/10/16 01:11 Provider Date of admission: 01/04/17 05:25 Primary care physician: PCP NONE Discharging clinician: Francine Spear Assessment and Plan - Patient/Caregiver Discharge Instructions Activity: resume usual activities as tolerated Diet: regular diet - Follow up Plan Follow up with: [facility] [Outside] (The above appointment is with Dulce Pugh, for outpatient psychiatric assessment and medication management services. Please arrive 30 minutes early to complete paperwork. Please bring your photo ID (bring proof of address if you do not have an ID) and medication list. The above appointment(s) reflects first availability. You may contact the office regularly to check for cancellations that may allow you to be seen sooner. Additionally, the new catalytic case operator assigned to you will contact you directly to schedule your intake appointment for case management and mental health counseling services. ) Functional capacity at discharge: independent ambulation Overall status at discharge: Stable Disposition: Home, Self-Care Hospital Course Hospital course: Mr. Maddox is a 21 year old male who was admitted secondary to . Client asked to be restarted on his Zoloft. Per client he took the Zoloft this morning and within minutes the voices were much better. Discussed how Zoloft is good for mood and anxiety but not psychosis. However, client never appeared psychotic. No responding to IS. Very happy on the unit. Told staff his main goal was to make friends. Asked to stay in the hospital through Sunday so that he could watch the theAudience race on TV. However, he was agreeable to discharge when it was discussed that he did not meet inpatient criteria. Denied SI throughout his admission. No HI or aggressive behaviors. - Time Spent with Patient Total time spent providing and/or coordinating discharge services: Quality - Multiple Antipsychotics Patient discharged on 2 or more antipsychotic medications: No Procedures - Procedures Procedures: Medication Management, Crisis Stabilization, Supportive Therapy, Group Therapy Mental Status Exam - Mental Status Exam Patient orientation: Yes Person, Yes Time, Yes Place Level of alertness: Alert Patient appearance: Appropriate Behavior: calm, cooperative Psychomotor activity: Normal Eye contact: Maintains Eye Contact Mood description: Euthymic/stable Affect description: congruent with mood, full range Speech pattern: Normal rate, Normal rhythm, Normal tone Speech Volume: Loud Thought process: Goal Oriented Thought Content: No Suicidal ideation, No Homicidal ideation, No Overt delusions Perceptual Disturbances: No Reacting to internal stimuli, Yes Auditory hallucinations, No Visual hallucinations Judgment: Limited Insight: Partial
== END 2017-01-05 11:20 | disposition home or self-care (01) ==
LOC: EMEROO 02:13 → 1ANU 02:13
PROVIDERS: ADMIT Psychiatry & Neurology Psychiatry; ATTEND Psychiatry & Neurology Psychiatry

== ENCOUNTER 2018-08-14 12:44 | Inpatient (IN) ==
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
[2018-08-14] MEDS ORDERED: Nicotine 21 MG PATCH.TD24 TD SCH (13:30)
--- NOTE | 2018-08-14 17:32 | Emergency Department Note ---
Disposition Clinical Impression: Suicidal ideation Disposition: Admitted As Inpatient Condition: Fair Time of Disposition: 17:20 Psych HPI - General Chief Complaint: ED Medical Clearance Stated Complaint: SI Time Seen by Provider: 08/14/18 12:48 Source: patient, EMS Mode of arrival: ambulatory Limitations: no limitations Nursing Notes Reviewed: Yes Vital Signs Reviewed: Yes - Related Data Home Medications Medication Instructions Recorded Confirmed Sertraline [Zoloft] 50 mg PO DAILY 12/25/17 08/14/18 Trazodone HCl 100 mg PO HS 08/14/18 08/14/18 Allergies Allergy/AdvReac Type Severity Reaction Status Date / Time No Known Allergies Allergy Verified 12/25/17 14:00 Past Medical History - Past Medical History Medical history: Reports: no medical history, hypertension Surgical history: Reports: non-contributory Psychiatric history: Reports: anxiety, ADHD, bipolar, depression, prior suicide attempt, previous psychiatric hospitalization, other - Social History Smoking Status: Current every day smoker Smokeless Tobacco Status: No Alcohol use: Reports: occasionally Drug use: Reports: marijuana Physical Exam - General Limitations: no limitations General appearance: alert, in no apparent distress Course Vital Signs Temperature 98.0 F 08/14/18 12:46 Pulse Rate 74 08/14/18 12:46 Respiratory Rate 18 08/14/18 12:46 Blood Pressure 123/75 08/14/18 12:46 O2 Sat by Pulse Oximetry 97 08/14/18 12:46 Temperature 97.6 F 08/14/18 20:04 Pulse Rate 84 08/14/18 20:04 Respiratory Rate 20 08/14/18 20:04 Blood Pressure 123/80 08/14/18 20:04 O2 Sat by Pulse Oximetry 97 08/14/18 20:04 Oxygen Delivery Oxygen Delivery Room Air Psych - MDM Narrative Medical decision making narrative: 22-year-old male received in sign out at 5 PM pending behavioral health evaluation and disposition. Patient was medically cleared by the day team. They have evaluated the patient and recommended that he be admitted to [facility]. patient is comfortable with this plan of action. He is resting comfortably in the room. No further concerns or complaints. Psychiatric Medical Clearance - Medical Clearance Checklist Medical History: No Social History Section defined Current Vitals: Last Vital Signs Temp 97.6 F 08/14/18 20:04 Pulse 84 08/14/18 20:04 Resp 20 08/14/18 20:04 BP 123/80 08/14/18 20:04 Pulse Ox 97 08/14/18 20:04 Statement of Medical Clearance: I have evaluated the patient, reviewed diagnostic information, and certify that the patient's medical condition is sufficiently stable that transfer to the psychiatric unit does not pose a significant risk of deterioration.
[2018-08-14] MEDS ORDERED: Mag Hydrox/Al Hydrox/Simeth 30 ML UDC PO PRN (18:02)
[2018-08-14] MEDS ORDERED: *HR* LORazepam 1 MG TABLET PO PRN (18:02)
[2018-08-14] MEDS ORDERED: Haloperidol Lactate 5 MG/ML VIAL IM PRN (18:02)
[2018-08-14] MEDS ORDERED: *HR* LORazepam 2 MG/ML VIAL IM PRN (18:02)
[2018-08-14] MEDS ORDERED: MOM Conc 10 ML UD.LIQ PO PRN (18:02)
[2018-08-14] MEDS: Nicotine 21 MG PATCH.TD24 TD SCH (19:17)
[2018-08-14] MEDS: traZODone 50 MG TABLET PO PRN (21:02)
[2018-08-14] MEDS: Nicotine 2 MG GUM BC PRN (21:03)
[2018-08-15] MEDS ORDERED: Nicotine 21 MG PATCH.TD24 TD SCH (09:00)
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
[2018-08-15] MEDS: Nicotine 21 MG PATCH.TD24 TD SCH (16:43)
[2018-08-15] MEDS: Ibuprofen 400 MG TABLET PO PRN (20:26)
[2018-08-15] MEDS: hydrOXYzine pamoate 25 MG CAPSULE PO PRN (20:26)
[2018-08-15] MEDS: traZODone 50 MG TABLET PO SCH (20:26)
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
[2018-08-16] MEDS: traZODone 50 MG TABLET PO PRN (20:59)
[2018-08-16] MEDS: traZODone 50 MG TABLET PO SCH (20:59)
[2018-08-16] MEDS: hydrOXYzine pamoate 25 MG CAPSULE PO PRN (20:59)
--- NOTE | 2018-08-17 11:43 | Psychiatry Progress Note ---
Date of Encounter: 08/17/18 Time of Encounter: 11:40 Subjective Interval history: Client continues to do well overall. Mood is stable but he quickly jumps to SI at the thought of being homeless. In the hospital setting he denies SI/HI/AH/VH. Client is low functioning and would not do well in a homeless situation. Remains hopeful he can return to [facility]. They were unable to see him yesterday so client will be here through the weekend. However, he is stable for discharge once housing is obtained. Sleeping and eating well. Attending and participating in groups. Interacting with staff and peers. Review of Systems Constitutional: Denies: fever, chills, weakness, weight change Eyes: Denies: eye pain, vision change Ears, Nose, Throat: Denies: ear pain, throat pain, dental pain, hearing loss, congestion Cardiovascular: Denies: chest pain, palpitations, dyspnea on exertion Respiratory: Denies: cough, dyspnea, wheezes Gastrointestinal: Denies: abdominal pain, nausea, vomiting, diarrhea, constipation Musculoskeletal: Denies: joint swelling, joint pain Neurological: Denies: headache, weakness, numbness, memory loss Results - Vital Signs Vital Signs: Temp Pulse Resp BP Pulse Ox 97.4 F L 72 18 112/72 97 08/17/18 09:00 08/17/18 09:00 08/17/18 09:00 08/17/18 09:00 08/17/18 09:00 Assessment and Plan (1) Major depression Current visit: Yes Status: Acute Plan: Continue hospitalization, Close observation, Suicide Precautions per unit protocol, Encourage participation in unit milieu, Group Therapy, Monitor sleep, Monitor appetite Risks, benefits, side effects, alternatives discussed w/pt: Yes Patient agreeable to treatment: Yes Qualifiers: Major depression recurrence: recurrent Active/Remission status: currently active Major depression episode severity: moderate Qualified Code(s): F33.1 - Major depressive disorder, recurrent, moderate (2) Autism Current visit: Yes Status: Acute Plan: Continue hospitalization, Close observation, Suicide Precautions per unit protocol, Encourage participation in unit milieu, Group Therapy, Monitor sleep, Monitor appetite Risks, benefits, side effects, alternatives discussed w/pt: Yes Patient agreeable to treatment: Yes (3) Attention deficit hyperactivity disorder Current visit: Yes Status: Acute Plan: Continue hospitalization, Close observation, Suicide Precautions per unit protocol, Encourage participation in unit milieu, Group Therapy, Monitor sleep, Monitor appetite Risks, benefits, side effects, alternatives discussed w/pt: Yes Patient agreeable to treatment: Yes Qualifiers: Attention deficit-hyperactivity disorder type: combined inattentive- hyperactive Qualified Code(s): F90.2 - Attention-deficit hyperactivity disorder, combined type Consult Discharge Plan - Plan Referrals: NONE,PCP [Primary Care Provider] - Psychiatry Exam - Constitutional Vitals: Temp Pulse Resp BP Pulse Ox 97.4 F L 72 18 112/72 97 08/17/18 09:00 08/17/18 09:00 08/17/18 09:00 08/17/18 09:00 08/17/18 09:00 General appearance: obese - Musculoskeletal Gait: normal Station: relaxed Strength & Tone: normal for patient - Psychiatric Patient Orientation: Yes Person, Yes Time, Yes Place Level of alertness: Alert Behavior: calm, cooperative Psychomotor activity: Normal Eye Contact: Maintains Eye Contact Mood Description: Euthymic/stable Affect description: congruent with mood, full range Speech Volume: Normal Speech pattern: normal rate, normal rhythm, normal tone, fluent, spontaneous Language & Vocabulary: consistent with education Thought Process: [place] Thought Content: No Suicidal ideation, No Homicidal ideation, No Overt delusions Perceptual Disturbances: No Auditory hallucinations, No Visual hallucinations Attention Span Ability: Capable of Focused Attention Memory Description: Grossly Intact Patient Reliability: Reliable Historian Fund of knowledge: Yes below average Intelligence Estimate: Below Average Judgment: Fair Insight: Partial
[2018-08-17] MEDS: Nicotine 2 MG GUM BC PRN (12:43)
[2018-08-17] MEDS: hydrOXYzine pamoate 25 MG CAPSULE PO PRN (22:08)
[2018-08-17] MEDS: traZODone 50 MG TABLET PO SCH (22:09)
--- NOTE | 2018-08-18 09:28 | Psychiatry Progress Note ---
Date of Encounter: 08/18/18 Time of Encounter: 09:26 Subjective Interval history: Client continues to do well. Mood stable. Denies SI, intent, or plan. Sleeping and eating well. Attending groups. Remains hopeful he will be taken back by [facility]. Plan is for him to be assessed and hopefully discharged tomorrow depending on bed availability. Client is clinically ready for discharge. Review of Systems Constitutional: Denies: fever, chills, weakness, weight change Eyes: Denies: eye pain, vision change Ears, Nose, Throat: Denies: ear pain, throat pain, dental pain, hearing loss, congestion Cardiovascular: Denies: chest pain, palpitations, dyspnea on exertion Respiratory: Denies: cough, dyspnea, wheezes Gastrointestinal: Denies: abdominal pain, nausea, vomiting, diarrhea, constipation Musculoskeletal: Denies: joint swelling, joint pain Neurological: Denies: headache, weakness, numbness, memory loss Results - Vital Signs Vital Signs: Temp Pulse Resp BP Pulse Ox 97.4 F L 81 18 115/73 97 08/17/18 20:09 08/17/18 20:09 08/17/18 20:09 08/17/18 20:09 08/17/18 20:09 Assessment and Plan (1) Major depression Current visit: Yes Status: Acute Plan: Continue hospitalization, Close observation, Suicide Precautions per unit protocol, Encourage participation in unit milieu, Group Therapy, Monitor sleep, Monitor appetite Risks, benefits, side effects, alternatives discussed w/pt: Yes Patient agreeable to treatment: Yes Qualifiers: Major depression recurrence: recurrent Active/Remission status: currently active Major depression episode severity: moderate Qualified Code(s): F33.1 - Major depressive disorder, recurrent, moderate (2) Autism Current visit: Yes Status: Acute Plan: Continue hospitalization, Close observation, Suicide Precautions per unit protocol, Encourage participation in unit milieu, Group Therapy, Monitor sleep, Monitor appetite Risks, benefits, side effects, alternatives discussed w/pt: Yes Patient agreeable to treatment: Yes (3) Attention deficit hyperactivity disorder Current visit: Yes Status: Acute Plan: Continue hospitalization, Close observation, Suicide Precautions per unit protocol, Encourage participation in unit milieu, Group Therapy, Monitor sleep, Monitor appetite Risks, benefits, side effects, alternatives discussed w/pt: Yes Patient agreeable to treatment: Yes Qualifiers: Attention deficit-hyperactivity disorder type: combined inattentive- hyperactive Qualified Code(s): F90.2 - Attention-deficit hyperactivity disorder, combined type Consult Discharge Plan - Plan Referrals: NONE,PCP [Primary Care Provider] - Psychiatry Exam - Constitutional Vitals: Temp Pulse Resp BP Pulse Ox 97.4 F L 81 18 115/73 97 08/17/18 20:09 08/17/18 20:09 08/17/18 20:09 08/17/18 20:09 08/17/18 20:09 General appearance: obese - Musculoskeletal Gait: normal Station: relaxed Strength & Tone: normal for patient - Psychiatric Patient Orientation: Yes Person, Yes Time, Yes Place Level of alertness: Alert Behavior: calm, cooperative Psychomotor activity: Normal Eye Contact: Maintains Eye Contact Mood Description: Euthymic/stable Affect description: congruent with mood, full range Speech Volume: Normal Speech pattern: normal rate, normal rhythm, normal tone, fluent, spontaneous Language & Vocabulary: consistent with education Thought Process: [place] Thought Content: No Suicidal ideation, No Homicidal ideation, No Overt delusions Perceptual Disturbances: No Auditory hallucinations, No Visual hallucinations Attention Span Ability: Capable of Focused Attention Memory Description: Grossly Intact Patient Reliability: Reliable Historian Fund of knowledge: Yes below average Intelligence Estimate: Below Average Judgment: Fair Insight: Partial
[2018-08-18] MEDS: hydrOXYzine pamoate 25 MG CAPSULE PO PRN (20:37)
[2018-08-18] MEDS: Nicotine 2 MG GUM BC PRN (20:37)
[2018-08-18] MEDS: Ibuprofen 400 MG TABLET PO PRN (20:37)
[2018-08-18] MEDS: traZODone 50 MG TABLET PO SCH (20:37)
--- NOTE | 2018-08-19 09:13 | Psychiatry Progress Note ---
Date of Encounter: 08/19/18 Time of Encounter: 09:11 Subjective Interval history: Client in a good mood today. "I'm ready to get out of here." Bright, reactive, upbeat. Remains intrusive and needy but otherwise stable. Denies SI/HI/AH/VH. [facility] accepted him back at [facility]. Client is discharge ready as soon as a bed becomes available. 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 Review of Systems Constitutional: Denies: fever, chills, weakness, weight change Eyes: Denies: eye pain, vision change Ears, Nose, Throat: Denies: ear pain, throat pain, dental pain, hearing loss, congestion Cardiovascular: Denies: chest pain, palpitations, dyspnea on exertion Respiratory: Denies: cough, dyspnea, wheezes Gastrointestinal: Denies: abdominal pain, nausea, vomiting, diarrhea, constipation Musculoskeletal: Denies: joint swelling, joint pain Neurological: Denies: headache, weakness, numbness, memory loss Results - Vital Signs Vital Signs: Temp Pulse Resp BP Pulse Ox 98 F 62 18 118/76 95 08/18/18 19:42 08/18/18 19:42 08/18/18 19:42 08/18/18 19:42 08/18/18 19:42 Assessment and Plan (1) Major depression Current visit: Yes Status: Acute Plan: Continue hospitalization, Close observation, Suicide Precautions per unit protocol, Encourage participation in unit milieu, Group Therapy, Monitor sleep, Monitor appetite Risks, benefits, side effects, alternatives discussed w/pt: Yes Patient agreeable to treatment: Yes Qualifiers: Major depression recurrence: recurrent Active/Remission status: currently active Major depression episode severity: moderate Qualified Code(s): F33.1 - Major depressive disorder, recurrent, moderate (2) Autism Current visit: Yes Status: Acute Plan: Continue hospitalization, Close observation, Suicide Precautions per unit protocol, Encourage participation in unit milieu, Group Therapy, Monitor sleep, Monitor appetite Risks, benefits, side effects, alternatives discussed w/pt: Yes Patient agreeable to treatment: Yes (3) Attention deficit hyperactivity disorder Current visit: Yes Status: Acute Plan: Continue hospitalization, Close observation, Suicide Precautions per unit protocol, Encourage participation in unit milieu, Group Therapy, Monitor sleep, Monitor appetite Risks, benefits, side effects, alternatives discussed w/pt: Yes Patient agreeable to treatment: Yes Qualifiers: Attention deficit-hyperactivity disorder type: combined inattentive- hyperactive Qualified Code(s): F90.2 - Attention-deficit hyperactivity disorder, combined type Consult Discharge Plan - Plan Referrals: NONE,PCP [Primary Care Provider] - Psychiatry Exam - Constitutional Vitals: Temp Pulse Resp BP Pulse Ox 98 F 62 18 118/76 95 08/18/18 19:42 08/18/18 19:42 08/18/18 19:42 08/18/18 19:42 08/18/18 19:42 General appearance: obese - Musculoskeletal Gait: normal Station: relaxed Strength & Tone: normal for patient - Psychiatric Patient Orientation: Yes Person, Yes Time, Yes Place Level of alertness: Alert Behavior: calm, cooperative Psychomotor activity: Normal Eye Contact: Maintains Eye Contact Mood Description: Euthymic/stable Affect description: congruent with mood, full range Speech Volume: Normal Speech pattern: normal rate, normal rhythm, normal tone, fluent, spontaneous Language & Vocabulary: consistent with education Thought Process: [place] Thought Content: No Suicidal ideation, No Homicidal ideation, No Overt delusions Perceptual Disturbances: No Auditory hallucinations, No Visual hallucinations Attention Span Ability: Capable of Focused Attention Memory Description: Grossly Intact Patient Reliability: Reliable Historian Fund of knowledge: Yes below average Intelligence Estimate: Below Average Judgment: Limited Insight: Partial
[2018-08-19] MEDS: traZODone 50 MG TABLET PO SCH (22:09)
--- NOTE | 2018-08-20 08:45 | Discharge Summary ---
Date of Encounter: 08/20/18 Time of Encounter: 08:00 Diagnosis - Discharge Diagnosis (1) Depression Status: Acute Qualifiers: Depression Type: major depressive disorder Major depression recurrence: r ecurrent Active/Remission status: currently active Major depression episode severity: severe Psychotic features: without psychotic features Qualified Code(s): F33.2 - Major depressive disorder, recurrent severe without psychotic features Medications - Discharge Medications Prescriptions: hydrOXYzine pamoate [HydrOXYzine Pamoate] 25 mg PO TID PRN #9 capsule PRN Reason: Anxiety Guanfacine [Tenex] 1 mg PO HS #30 tablet Trazodone HCl 100 mg PO HS #30 tablet Sertraline [Zoloft] 50 mg PO DAILY #30 tablet Guanfacine [Tenex] 1 mg PO HS #30 tablet 08/20/18 [Rx] Ibuprofen [Motrin] 400 mg PO Q6HR PRN tablet 08/20/18 [Rx] Sertraline [Zoloft] 50 mg PO DAILY #30 tablet 08/20/18 [Rx] Trazodone HCl 100 mg PO HS #30 tablet 08/20/18 [Rx] hydrOXYzine pamoate [HydrOXYzine Pamoate] 25 mg PO TID PRN #9 capsule 08/20/18 [Rx] Allergy/AdvReac Type Severity Reaction Status Date / Time No Known Allergies Allergy Verified 12/25/17 14:00 Provider Date of admission: 08/14/18 17:23 Primary care physician: PCP NONE Consults: 08/14/18 17:57 Consult to Pastoral Services [CONS] Routine Comment: Discharging clinician: Elodia Mccarry Psychiatry Exam - Constitutional Vitals: Temp Pulse Resp BP Pulse Ox 97.9 F 66 18 124/72 98 08/19/18 20:00 08/19/18 20:00 08/19/18 20:00 08/19/18 20:00 08/19/18 20:00 General appearance: age & developmentally appropriate, well-groomed, well- nourished, obese - Musculoskeletal Gait: normal Station: relaxed Strength & Tone: normal for patient - Psychiatric Patient Orientation: Yes Person, Yes Time, Yes Place Level of alertness: Alert Behavior: calm, cooperative Psychomotor activity: Normal Eye Contact: Maintains Eye Contact Mood Description: Euthymic/stable Patient description of mood: Better Affect description: congruent with mood, full range Speech Volume: Normal Speech pattern: normal rate, normal rhythm, normal tone, fluent, spontaneous Language & Vocabulary: consistent with education Thought Process: Linear, Goal Oriented Thought Content: No Suicidal ideation, No Homicidal ideation, No Overt delusions Perceptual Disturbances: No Auditory hallucinations, No Visual hallucinations Attention Span Ability: Capable of Focused Attention Memory Description: Grossly Intact Patient Reliability: Reliable Historian Fund of knowledge: Yes abstraction ability, Yes aware of current events Intelligence Estimate: Average Judgment: Good Insight: Full Hospital Course Hospital course: Mr. Maddox is a 22 year old male who was admission for depression and suicidal thoughts. He was started back on his Zoloft and he had trazodone for sleep and Vistaril for insomnia.Patient was educated of diagnosis and the risk-benefit side effects of this alternative treatment options and was monitored for responsiveness and side effects. Mood anxiety sleep and appetite interest improved as did future orientation. Self-harm thoughts subsided, thinking cleared, psychosis resolved, and mood stabilized. Patient was able to attend both individual and group therapy sessions as well as meet with the psychiatrist daily and urged to discuss any medication or treatment issues or other concerns. The patient was educated primarily by verbal means about their diagnosis and manifestations in their life. The option for treatment including group and individual therapy programming was offered to the patient in addition to the use of medications with all their potential risks, benefits, and side effects as well as the risks of not taking medication and non-adhereance were discussed with the patient at length. The patient was given the opportunity to ask questions and was noted to participate in the treatment in the planning process. The patient felt ready and eager to be discharged from the inpatient psychiatric unit to continue on with treatment as an outpatient. The patient agreed that is they were safe for this disposition. The patient was considered to be able to participate in informed consent and decision making with respect to medical, legal, and financial issues of the time of discharge. At the time of discharge the patient adamantly denied any concerns for lethality including suicidal or homicidal thoughts ideations or plans and was future oriented toward ongoing mental health care. Time spent discussing smoking cessation with patient: 3 to 10 minutes Does patient wish to continue nicotine replacement upon disc: No - Time Spent with Patient Total time spent providing and/or coordinating discharge services: 25 Less than 30 minutes Specific discharge activities: Interval history reviewed. Available labs reviewed . Psychotherapy provided. Patient had an opportunity to ask questions and address concerns. Patient was in agreement with the treatment plan. The risks benefits and side effects of medications were discussed with the patient, including alternatives and treatment. The patient was educated on the abstaining from any alcohol or illicit substances, following up with all scheduled appointments, and taking all medications as prescribed. Assessment and Plan - Patient/Caregiver Discharge Instructions Activity: resume usual activities as tolerated Diet: regular diet Additional Instructions: Continue current medications. Follow up with outpatient mental health. Encourage continued therapy in a group or individual setting. The patient was discharged to home. - Follow up Plan Follow up with: NONE,PCP [Primary Care Provider] - Functional capacity at discharge: independent ambulation Overall status at discharge: Stable Disposition: Home, Self-Care Quality - Multiple Antipsychotics Patient discharged on 2 or more antipsychotic medications: No Procedures - Procedures Procedures: Medication Management, Crisis Stabilization, Supportive Therapy, Group Therapy, Psychoeducational Therapy
[2018-08-20 08:58] VITALS: BP 129/75
== END 2018-08-20 12:05 | disposition home or self-care (01) | DRG 885 ==
LOC: EMEROOARM 12:44 → 1ANU 17:23 → SUATTDRO 17:23 → 1ANU 17:29
PROVIDERS: ADMIT Psychiatry & Neurology Psychiatry; ATTEND Psychiatry & Neurology Psychiatry

== ENCOUNTER 2019-01-11 21:39 | Inpatient (IN) ==
[2019-01-11] MEDS ORDERED: Ziprasidone 10 MG in Water for inj. (sterile) 0.5 ML IM ONE (22:03)
[2019-01-11 22:27] LABS: Basophils # 0.1 K/mcL (0.0-0.2); Basophils % 0.6 %; Eosinophils # 0.4 K/mcL (0.0-0.6); Eosinophils % 3.8 %; Hematocrit 45.3 % (37.5-50.1); Hemoglobin 15.5 g/dL (12.9-16.9); Immature Granulocytes % 0.5 % (0-4); Lymphocytes # 2.1 K/mcL (0.6-4.6); Lymphocytes % 20.5 %; Mean Corpuscular HGB Conc 34.2 g/dL (31.6-35.5); Mean Corpuscular Hemoglobin 30.7 pg (28.0-33.3); Mean Corpuscular Volume 89.7 fL (83.0-100.0); Mean Platelet Volume 10.8 fL (9.4-12.4); Monocytes # 0.9 K/mcL (0.0-1.3); Monocytes % 8.8 %; Neutrophils # 6.6 K/mcL (1.6-8.9); Platelet Count 231 K/mcL (140-400); Red Blood Count 5.05 M/mcL (4.19-5.50); Red Cell Distribution Width 12.8 % (11.5-14.5); Segmented Neutrophils % 65.8 %
[2019-01-11 22:35] LABS: Estimated Average Glucose 111 mg/dl
[2019-01-11 22:42] LABS: Bilirubin,Urine Negative (Negative); Blood,Urine Small (Negative); Clarity,Urine Clear (Clear); Color,Urine Yellow (Yellow); Glucose,Urine (UA) Normal (Normal); Ketones,Urine Negative (Negative); Leukocyte Esterase,Urine Negative (Negative); Nitrite,Urine Negative (Negative); Protein,Urine Negative (Neg-Trace); Specific Gravity,Urine 1.021 (1.010-1.025); Urobilinogen,Urine Normal (Normal)
[2019-01-11 22:44] LABS: Bacteria,Urine None Seen per hpf (None-Few); Hyaline Casts,Urine None Seen per lpf (None-Few); RBC,Urine 15-30 per hpf (0-3); Squamous Epithelial Cell,Urine Few per lpf (None-Few); WBC,Urine 0-3 per hpf (0-3)
[2019-01-11 22:49] LABS: Acetaminophen < 10 mcg/mL (10-20); Alanine Aminotransferase 20 Units/L (7-52); Albumin 4.1 g/dL (3.5-5.7); Albumin/Globulin Ratio 1.4 (1.1-2.2); Alkaline Phosphatase 71 Units/L (34-104); Aspartate Amino Transferase 18 Units/L (13-39); BUN/Creatinine Ratio 12 (6-26); Bilirubin,Direct 0.1 mg/dL (0.0-0.2); Bilirubin,Indirect 0.2 mg/dL (0.0-1.0); Bilirubin,Total 0.3 mg/dL (0.3-1.0); Blood Urea Nitrogen 13 mg/dL (6-20); Carbon Dioxide 25 mEq/L (23-29); Chloride 105 mEq/L (98-107); Chol/HDL Ratio 3.7 (0-4.9); Cholesterol 106 mg/dL (< 200); Ethanol < 10 mg/dL (Less than 10); Glucose 109 mg/dL (70-105); HDL Cholesterol 29 mg/dL (40-59); LDL Cholesterol,Calculated 52 mg/dL (0-99); Osmolality,Calculated 285 (280-300); Potassium 3.8 mEq/L (3.5-5.1); Salicylate < 2.5 mg/dL (15.0-30.0); Sodium 137 mEq/L (136-145); Total Protein 7.1 g/dL (6.4-8.9); Triglycerides 123 mg/dL (< 150); eGFR For African Americans > 60 (> 60); eGFR For Non-African Americans > 60 (> 60)
[2019-01-11 22:52] LABS: Amphetamine Screen,Urine Negative ng/mL (Cutoff=1000); Barbiturate Screen,Urine Negative ng/mL (Cutoff=200); Benzodiazepines Screen,Urine Negative ng/mL (Cutoff=200); Cannabinoid Screen,Urine Negative ng/mL (Cutoff = 50); Cocaine Screen,Urine Negative ng/mL (Cutoff= 300); Opiate Screen,Urine Negative ng/mL (Cutoff=300); Phencyclidine Screen,Urine Negative ng/mL (Cutoff=25)
[2019-01-11 23:02] LABS: Thyroid Stimulating Hormone 1.425 mcIU/mL (0.340-5.600)
[2019-01-12] MEDS ORDERED: Mag Hydrox/Al Hydrox/Simeth 30 ML UDC PO PRN (00:32)
[2019-01-12] MEDS ORDERED: Haloperidol Lactate 5 MG/ML VIAL IM PRN (00:32)
[2019-01-12] MEDS ORDERED: *HR* LORazepam 1 MG TABLET PO PRN (00:32)
[2019-01-12] MEDS ORDERED: MOM Conc 10 ML UD.LIQ PO PRN (00:32)
[2019-01-12] MEDS ORDERED: Acetaminophen 325 MG TABLET PO PRN (00:32)
[2019-01-12] MEDS ORDERED: *HR* LORazepam 2 MG/ML VIAL IM PRN (00:32)
[2019-01-12] MEDS: traZODone 50 MG TABLET PO PRN ×2 (01:20→21:06)
[2019-01-12] MEDS: hydrOXYzine pamoate 25 MG CAPSULE PO PRN ×2 (01:20→21:06)
[2019-01-13 08:25] VITALS: BP 116/76
== END 2019-01-13 13:00 | disposition home or self-care (01) | DRG 885 ==
LOC: EMEROOARM 21:39 → 1ANU 23:59
PROVIDERS: ADMIT Psychiatry & Neurology Psychiatry; ATTEND Psychiatry & Neurology Psychiatry

== ENCOUNTER 2020-07-30 14:25 | Inpatient (IN) ==
[2020-07-30 15:01] LABS: Bilirubin,Urine Negative (Negative); Blood,Urine Negative (Negative); Clarity,Urine Clear (Clear); Color,Urine Yellow (Yellow); Glucose,Urine (UA) Normal (Normal); Ketones,Urine Negative (Negative); Leukocyte Esterase,Urine Negative (Negative); Nitrite,Urine Negative (Negative); PH,Urine 6.5 pH Units (5.0-8.0); Protein,Urine Trace mg/dL (Neg-Trace); Specific Gravity,Urine 1.024 (1.010-1.025)
[2020-07-30 15:22] LABS: Basophils # 0.1 K/mcL (0.0-0.2); Basophils % 0.5 %; Eosinophils # 0.4 K/mcL (0.0-0.6); Eosinophils % 3.3 %; Hematocrit 45.3 % (37.5-50.1); Immature Granulocytes % 0.6 % (0-4); Lymphocytes # 1.8 K/mcL (0.6-4.6); Lymphocytes % 14.9 %; Mean Corpuscular HGB Conc 33.1 g/dL (31.6-35.5); Mean Corpuscular Hemoglobin 29.4 pg (28.0-33.3); Mean Corpuscular Volume 88.8 fL (83.0-100.0); Mean Platelet Volume 10.5 fL (9.4-12.4); Neutrophils # 8.9 K/mcL (1.6-8.9); Platelet Count 288 K/mcL (140-400); Red Cell Distribution Width 12.5 % (11.5-14.5); Segmented Neutrophils % 72.7 %; White Blood Count 12.3 K/mcL (4.3-11.1)
[2020-07-30 15:57] LABS: Acetaminophen < 10 mcg/mL (10-20); Alanine Aminotransferase 27 Units/L (7-52); Albumin 4.1 g/dL (3.5-5.7); Albumin/Globulin Ratio 1.1 (1.1-2.2); Alkaline Phosphatase 67 Units/L (34-104); Aspartate Amino Transferase 17 Units/L (13-39); BUN/Creatinine Ratio 8 (6-26); Bilirubin,Direct 0.1 mg/dL (0.0-0.2); Bilirubin,Indirect 0.3 mg/dL (0.0-1.0); Bilirubin,Total 0.4 mg/dL (0.3-1.0); Blood Urea Nitrogen 8 mg/dL (6-20); Calcium 9.4 mg/dL (8.6-10.3); Carbon Dioxide 20 mEq/L (23-29); Chloride 108 mEq/L (98-107); Chol/HDL Ratio 5.6 (0-4.9); Cholesterol 134 mg/dL (< 200); Ethanol < 10 mg/dL (Less than 10); Globulin 3.7 g/dL (2.4-3.5); Glucose 90 mg/dL (70-105); HDL Cholesterol 24 mg/dL (40-59); LDL Cholesterol,Calculated 84 mg/dL (< 100); Osmolality,Calculated 288 (280-300); Potassium 3.8 mEq/L (3.5-5.1); Salicylate < 2.5 mg/dL (15.0-30.0); Sodium 140 mEq/L (136-145); Thyroid Stimulating Hormone 1.513 mcIU/mL (0.340-5.600); Total Protein 7.8 g/dL (6.4-8.9); Triglycerides 129 mg/dL (< 150); eGFR For African Americans > 60 (> 60); eGFR For Non-African Americans > 60 (> 60)
[2020-07-30 16:29] LABS: Amphetamine Screen,Urine Negative ng/mL (Cutoff=1000); Barbiturate Screen,Urine Negative ng/mL (Cutoff=200); Benzodiazepines Screen,Urine Negative ng/mL (Cutoff=200); Cannabinoid Screen,Urine Negative ng/mL (Cutoff = 50); Cocaine Screen,Urine Negative ng/mL (Cutoff= 300); Opiate Screen,Urine Negative ng/mL (Cutoff=300); Phencyclidine Screen,Urine Negative ng/mL (Cutoff=25)
[2020-07-30 18:34] LABS: Estimated Average Glucose 108 mg/dl; Hemoglobin A1C 5.4 %
[2020-07-30] MEDS ORDERED: QUEtiapine Fumarate 25 MG TABLET PO PRN (21:08)
[2020-07-30] MEDS ORDERED: Haloperidol Lactate 5 MG/ML VIAL IM PRN (21:08)
[2020-07-30] MEDS ORDERED: MOM Conc 10 ML UD.LIQ PO PRN (21:08)
[2020-07-30] MEDS ORDERED: hydrOXYzine pamoate 25 MG CAPSULE PO PRN (21:08)
[2020-07-30] MEDS ORDERED: *HR* LORazepam 1 MG TABLET PO PRN (21:08)
[2020-07-30] MEDS ORDERED: *HR* LORazepam 2 MG/ML VIAL IM PRN (21:08)
[2020-07-30] MEDS ORDERED: haloperidoL 5 MG TABLET PO PRN (21:08)
[2020-07-30] MEDS ORDERED: Mag Hydrox/Al Hydrox/Simeth 30 ML UDC PO PRN (21:08)
[2020-07-30] MEDS ORDERED: Acetaminophen 325 MG TABLET PO PRN (21:08)
[2020-07-31] MEDS: Melatonin 3 MG TABLET PO SCH (20:38)
[2020-07-31] MEDS: traZODone 50 MG TABLET PO SCH (20:38)
[2020-07-31] MEDS: ARIPiprazole 5 MG TABLET PO SCH (20:38)
[2020-07-31] MEDS: hydrOXYzine pamoate 25 MG CAPSULE PO SCH (20:38)
[2020-08-01] MEDS: hydrOXYzine pamoate 25 MG CAPSULE PO SCH ×2 (09:01→21:10)
[2020-08-01] MEDS: traZODone 50 MG TABLET PO SCH (21:10)
[2020-08-01] MEDS: Melatonin 3 MG TABLET PO SCH (21:10)
[2020-08-01] MEDS: ARIPiprazole 5 MG TABLET PO SCH (21:10)
[2020-08-02 08:20] VITALS: BP 129/69
[2020-08-02] MEDS: hydrOXYzine pamoate 25 MG CAPSULE PO SCH (08:31)
== END 2020-08-02 10:10 | disposition home or self-care (01) | DRG 885 ==
LOC: EMEROOARM 14:25 → 1ANU 21:12
PROVIDERS: ADMIT Psychiatry & Neurology Forensic Psychiatry; ATTEND Psychiatry & Neurology Forensic Psychiatry

== ENCOUNTER 2020-08-05 22:21 | Inpatient (IN) ==
[2020-08-05 22:46] LABS: Bilirubin,Urine Negative (Negative); Blood,Urine Negative (Negative); Clarity,Urine Clear (Clear); Color,Urine Yellow (Yellow); Glucose,Urine (UA) Normal (Normal); Ketones,Urine Negative (Negative); Leukocyte Esterase,Urine Negative (Negative); Nitrite,Urine Negative (Negative); Protein,Urine Trace mg/dL (Neg-Trace); Specific Gravity,Urine 1.026 (1.010-1.025); Urobilinogen,Urine Normal (Normal)
[2020-08-05 22:47] LABS: Basophils # 0.1 K/mcL (0.0-0.2); Basophils % 0.4 %; Eosinophils # 0.3 K/mcL (0.0-0.6); Eosinophils % 2.6 %; Hematocrit 45.2 % (37.5-50.1); Hemoglobin 15.3 g/dL (12.9-16.9); Immature Granulocytes % 0.6 % (0-4); Lymphocytes # 1.7 K/mcL (0.6-4.6); Lymphocytes % 13.5 %; Mean Corpuscular HGB Conc 33.8 g/dL (31.6-35.5); Mean Corpuscular Hemoglobin 29.9 pg (28.0-33.3); Mean Corpuscular Volume 88.3 fL (83.0-100.0); Monocytes # 0.9 K/mcL (0.0-1.3); Neutrophils # 9.7 K/mcL (1.6-8.9); Platelet Count 295 K/mcL (140-400); Red Blood Count 5.12 M/mcL (4.19-5.50); Red Cell Distribution Width 12.5 % (11.5-14.5); Segmented Neutrophils % 75.9 %; White Blood Count 12.8 K/mcL (4.3-11.1)
[2020-08-05 22:56] LABS: Amphetamine Screen,Urine Negative ng/mL (Cutoff=1000); Barbiturate Screen,Urine Negative ng/mL (Cutoff=200); Benzodiazepines Screen,Urine Negative ng/mL (Cutoff=200); Cannabinoid Screen,Urine Negative ng/mL (Cutoff = 50); Cocaine Screen,Urine Negative ng/mL (Cutoff= 300); Opiate Screen,Urine Negative ng/mL (Cutoff=300); Phencyclidine Screen,Urine Negative ng/mL (Cutoff=25)
[2020-08-05 23:06] LABS: Acetaminophen < 10 mcg/mL (10-20); BUN/Creatinine Ratio 11 (6-26); Blood Urea Nitrogen 11 mg/dL (6-20); Calcium 9.3 mg/dL (8.6-10.3); Carbon Dioxide 22 mEq/L (23-29); Chloride 107 mEq/L (98-107); Ethanol < 10 mg/dL (Less than 10); Glucose 124 mg/dL (70-105); Osmolality,Calculated 287 (280-300); Potassium 3.7 mEq/L (3.5-5.1); Salicylate < 2.5 mg/dL (15.0-30.0); Sodium 138 mEq/L (136-145); eGFR For African Americans > 60 (> 60); eGFR For Non-African Americans > 60 (> 60)
[2020-08-06 00:59] LABS: Influenza A PCR Negative (Negative); Influenza B PCR Negative (Negative); Resp. Syncytial Virus PCR Negative (Negative)
[2020-08-06 01:02] LABS: SARS-CoV-2 by PCR (In House) Negative (Negative)
[2020-08-06] MEDS ORDERED: Acetaminophen 325 MG TABLET PO PRN (01:25)
[2020-08-06] MEDS ORDERED: hydrOXYzine pamoate 25 MG CAPSULE PO PRN (01:25)
[2020-08-06] MEDS ORDERED: haloperidoL 5 MG TABLET PO PRN (01:25)
[2020-08-06] MEDS ORDERED: Haloperidol Lactate 5 MG/ML VIAL IM PRN (01:25)
[2020-08-06] MEDS ORDERED: QUEtiapine Fumarate 25 MG TABLET PO PRN (01:25)
[2020-08-06] MEDS ORDERED: *HR* LORazepam 2 MG/ML VIAL IM PRN (01:25)
[2020-08-06] MEDS ORDERED: *HR* LORazepam 1 MG TABLET PO PRN (01:25)
[2020-08-06] MEDS ORDERED: Mag Hydrox/Al Hydrox/Simeth 30 ML UDC PO PRN (12:55)
[2020-08-06] MEDS ORDERED: MOM Conc 10 ML UD.LIQ PO PRN (12:55)
[2020-08-06] MEDS ORDERED: ARIPiprazole 5 MG TABLET PO SCH (21:00)
[2020-08-06] MEDS: ARIPiprazole 5 MG TABLET PO SCH (21:49)
[2020-08-06] MEDS: traZODone 50 MG TABLET PO SCH (21:49)
[2020-08-06] MEDS: hydrOXYzine pamoate 25 MG CAPSULE PO SCH (21:50)
[2020-08-07] MEDS: hydrOXYzine pamoate 25 MG CAPSULE PO SCH ×2 (09:48→21:46)
[2020-08-07] MEDS: ARIPiprazole 5 MG TABLET PO SCH (21:46)
[2020-08-07] MEDS: traZODone 50 MG TABLET PO SCH (21:46)
[2020-08-08] MEDS: hydrOXYzine pamoate 25 MG CAPSULE PO SCH ×2 (08:12→21:12)
[2020-08-08] MEDS: traZODone 50 MG TABLET PO SCH (21:12)
[2020-08-08] MEDS: ARIPiprazole 5 MG TABLET PO SCH (21:12)
[2020-08-09] MEDS: hydrOXYzine pamoate 25 MG CAPSULE PO SCH (09:34)
[2020-08-09 10:24] VITALS: BP 129/85
== END 2020-08-09 10:10 | disposition home or self-care (01) | DRG 885 ==
LOC: EMEROOARM 22:21 → 1ANU 08-06 01:22
PROVIDERS: ADMIT Psychiatry & Neurology Psychiatry; ATTEND Psychiatry & Neurology Psychiatry

== ENCOUNTER 2020-11-17 22:58 | Inpatient (IN) ==
[2020-11-17 23:44] LABS: Bilirubin,Urine Negative (Negative); Blood,Urine Negative (Negative); Clarity,Urine Clear (Clear); Color,Urine Light-Yellow (Yellow); Glucose,Urine (UA) Normal (Normal); Ketones,Urine Negative (Negative); Leukocyte Esterase,Urine Negative (Negative); Nitrite,Urine Negative (Negative); PH,Urine 6.5 pH Units (5.0-8.0); Protein,Urine Negative (Neg-Trace); Specific Gravity,Urine 1.022 (1.010-1.025); Urobilinogen,Urine Normal (Normal)
[2020-11-17 23:46] LABS: Basophils # 0.1 K/mcL (0.0-0.2); Basophils % 0.5 %; Eosinophils # 0.4 K/mcL (0.0-0.6); Eosinophils % 3.9 %; Hematocrit 43.3 % (37.5-50.1); Immature Granulocytes % 0.7 % (0-4); Lymphocytes # 1.3 K/mcL (0.6-4.6); Lymphocytes % 12.1 %; Mean Corpuscular HGB Conc 34.6 g/dL (31.6-35.5); Mean Corpuscular Hemoglobin 30.5 pg (28.0-33.3); Mean Platelet Volume 10.4 fL (9.4-12.4); Monocytes # 0.9 K/mcL (0.0-1.3); Monocytes % 7.7 %; Neutrophils # 8.3 K/mcL (1.6-8.9); Platelet Count 237 K/mcL (140-400); Red Blood Count 4.92 M/mcL (4.19-5.50); Red Cell Distribution Width 13.2 % (11.5-14.5); Segmented Neutrophils % 75.1 %
[2020-11-17 23:53] LABS: Amphetamine Screen,Urine Negative ng/mL (Cutoff=1000); Barbiturate Screen,Urine Negative ng/mL (Cutoff=200); Benzodiazepines Screen,Urine Negative ng/mL (Cutoff=200); Cannabinoid Screen,Urine Negative ng/mL (Cutoff = 50); Cocaine Screen,Urine Negative ng/mL (Cutoff= 300); Opiate Screen,Urine Negative ng/mL (Cutoff=300); Phencyclidine Screen,Urine Negative ng/mL (Cutoff=25)
[2020-11-18 00:05] LABS: Acetaminophen < 10 mcg/mL (10-20); Alanine Aminotransferase 35 Units/L (7-52); Albumin 3.9 g/dL (3.5-5.7); Albumin/Globulin Ratio 1.1 (1.1-2.2); Alkaline Phosphatase 59 Units/L (34-104); Aspartate Amino Transferase 21 Units/L (13-39); BUN/Creatinine Ratio 12 (6-26); Bilirubin,Direct 0.1 mg/dL (0.0-0.2); Bilirubin,Indirect 0.3 mg/dL (0.0-1.0); Bilirubin,Total 0.4 mg/dL (0.3-1.0); Blood Urea Nitrogen 11 mg/dL (6-20); Calcium 9.3 mg/dL (8.6-10.3); Carbon Dioxide 24 mEq/L (23-29); Chloride 105 mEq/L (98-107); Ethanol < 10 mg/dL (Less than 10); Globulin 3.5 g/dL (2.4-3.5); Glucose 109 mg/dL (70-105); Osmolality,Calculated 286 (280-300); Potassium 3.6 mEq/L (3.5-5.1); Salicylate < 2.5 mg/dL (15.0-30.0); Sodium 138 mEq/L (136-145); Total Protein 7.4 g/dL (6.4-8.9); eGFR For African Americans > 60 (> 60); eGFR For Non-African Americans > 60 (> 60)
[2020-11-18] MEDS ORDERED: haloperidoL 5 MG TABLET PO PRN (03:05)
[2020-11-18] MEDS ORDERED: hydrOXYzine pamoate 25 MG CAPSULE PO PRN (03:05)
[2020-11-18] MEDS ORDERED: traZODone 50 MG TABLET PO PRN (03:05)
[2020-11-18] MEDS ORDERED: *HR* LORazepam 1 MG TABLET PO PRN (04:00)
[2020-11-18] MEDS ORDERED: Haloperidol Lactate 5 MG/ML VIAL IM PRN (04:00)
[2020-11-18] MEDS ORDERED: *HR* LORazepam 2 MG/ML VIAL IM PRN (04:00)
[2020-11-18] MEDS ORDERED: Mag Hydrox/Al Hydrox/Simeth 30 ML UDC PO PRN (10:27)
[2020-11-18] MEDS ORDERED: MOM Conc 10 ML UD.LIQ PO PRN (10:27)
[2020-11-18] MEDS ORDERED: Ibuprofen 400 MG TABLET PO PRN (10:27)
[2020-11-18] MEDS ORDERED: Nicotine 21 MG PATCH.TD24 TD PRN (10:27)
[2020-11-18] MEDS: hydrOXYzine pamoate 25 MG CAPSULE PO SCH ×2 (11:31→21:02)
[2020-11-18] MEDS: ARIPiprazole 5 MG TABLET PO SCH (11:31)
[2020-11-18] MEDS ORDERED: traZODone 50 MG TABLET PO SCH (21:00)
[2020-11-19 09:18] VITALS: BP 118/77; PULSE 87; TEMP 98.1; O2SAT 96
[2020-11-19] MEDS: hydrOXYzine pamoate 25 MG CAPSULE PO SCH (09:45)
[2020-11-19] MEDS: ARIPiprazole 5 MG TABLET PO SCH (09:46)
== END 2020-11-19 13:35 | disposition home or self-care (01) | DRG 885 ==
LOC: EMEROOARM 22:58 → 1ANU 11-18 03:13
PROVIDERS: ADMIT Psychiatry & Neurology Psychiatry; ATTEND Psychiatry & Neurology Psychiatry

== ENCOUNTER 2021-12-02 18:26 | Inpatient (IN) ==
[2021-12-02 20:29] LABS: Bilirubin,Urine Negative (Negative); Blood,Urine Negative (Negative); Clarity,Urine Clear (Clear); Color,Urine Light-Yellow (Yellow); Glucose,Urine (UA) Normal (Normal); Ketones,Urine Negative (Negative); Leukocyte Esterase,Urine Negative (Negative); Mucus,Urine Few per lpf (None-Few); Nitrite,Urine Negative (Negative); PH,Urine 6.5 pH Units (5.0-8.0); Protein,Urine 30 mg/dL (Neg-Trace); Specific Gravity,Urine 1.024 (1.010-1.025); Urobilinogen,Urine Normal (Normal); WBC,Urine 0-3 per hpf (0-3)
[2021-12-02 20:31] LABS: Basophils # 0.1 K/mcL (0.0-0.2); Basophils % 0.4 %; Eosinophils # 0.2 K/mcL (0.0-0.6); Eosinophils % 1.1 %; Hematocrit 46.4 % (37.5-50.1); Hemoglobin 15.8 g/dL (12.9-16.9); Immature Granulocytes % 0.8 % (0-4); Lymphocytes # 1.8 K/mcL (0.6-4.6); Lymphocytes % 9.4 %; Mean Corpuscular HGB Conc 34.1 g/dL (31.6-35.5); Mean Corpuscular Hemoglobin 30.2 pg (28.0-33.3); Mean Corpuscular Volume 88.5 fL (83.0-100.0); Mean Platelet Volume 10.4 fL (9.4-12.4); Monocytes # 1.1 K/mcL (0.0-1.3); Monocytes % 5.6 %; Neutrophils # 15.6 K/mcL (1.6-8.9); Platelet Count 325 K/mcL (140-400); Red Blood Count 5.24 M/mcL (4.19-5.50); Segmented Neutrophils % 82.7 %; White Blood Count 18.9 K/mcL (4.3-11.1)
[2021-12-02 20:41] LABS: Amphetamine Screen,Urine Negative ng/mL (Cutoff=1000); Barbiturate Screen,Urine Negative ng/mL (Cutoff=200); Benzodiazepines Screen,Urine Negative ng/mL (Cutoff=200); Cannabinoid Screen,Urine Negative ng/mL (Cutoff = 50); Cocaine Screen,Urine Negative ng/mL (Cutoff= 300); Opiate Screen,Urine Negative ng/mL (Cutoff=300); Phencyclidine Screen,Urine Negative ng/mL (Cutoff=25)
[2021-12-02 20:49] LABS: Acetaminophen < 10 mcg/mL (10-20); BUN/Creatinine Ratio 20 (6-26); Blood Urea Nitrogen 21 mg/dL (6-20); Calcium 9.9 mg/dL (8.6-10.3); Carbon Dioxide 22 mEq/L (23-29); Chloride 105 mEq/L (98-107); Chol/HDL Ratio 5.3 (0-4.9); Cholesterol 149 mg/dL (< 200); Ethanol < 10 mg/dL (Less than 10); Glucose 103 mg/dL (70-105); HDL Cholesterol 28 mg/dL (40-59); LDL Cholesterol,Calculated 62 mg/dL (< 100); Osmolality,Calculated 287 (280-300); Potassium 3.9 mEq/L (3.5-5.1); Salicylate < 2.5 mg/dL (15.0-30.0); Sodium 137 mEq/L (136-145); Triglycerides 293 mg/dL (< 150)
[2021-12-02 22:37] LABS: Estimated Average Glucose 114 mg/dl; Hemoglobin A1C 5.6 %
[2021-12-03 01:14] LABS: Influenza A PCR Negative (Negative); Influenza B PCR Negative (Negative); Resp. Syncytial Virus PCR Negative (Negative)
[2021-12-03 01:16] LABS: SARS-CoV-2 by PCR (In House) Negative (Negative)
[2021-12-03] MEDS ORDERED: Acetaminophen 325 MG TABLET PO PRN (04:02)
[2021-12-03] MEDS ORDERED: *HR* LORazepam 1 MG TABLET PO PRN (04:02)
[2021-12-03] MEDS ORDERED: hydrOXYzine pamoate 25 MG CAPSULE PO PRN (04:02)
[2021-12-03] MEDS ORDERED: traZODone 50 MG TABLET PO PRN (04:02)
[2021-12-03] MEDS ORDERED: haloperidoL 5 MG TABLET PO PRN (04:02)
[2021-12-03] MEDS ORDERED: Haloperidol Lactate 5 MG/ML VIAL IM PRN (04:02)
[2021-12-03] MEDS ORDERED: *HR* LORazepam 2 MG/ML VIAL IM PRN (04:02)
[2021-12-03] MEDS: traZODone 50 MG TABLET PO SCH (21:22)
[2021-12-04] MEDS: traZODone 50 MG TABLET PO SCH (22:02)
[2021-12-05 09:04] VITALS: BP 121/79; PULSE 92; TEMP 97.6; O2SAT 94
== END 2021-12-05 17:45 | disposition home or self-care (01) | DRG 882 ==
LOC: EMEROOARM 18:26 → 1ANU 12-03 03:58
PROVIDERS: ADMIT Psychiatry & Neurology Psychiatry; ATTEND Psychiatry & Neurology Psychiatry